=== PATIENT | male | born 1955 | race Caucasian/White ===

== ENCOUNTER 2020-07-28 10:15 | Outpatient (REF) | payer OTHER, SELFPAY ==
[2020-07-28 10:36] LABS: MANUAL DIFF FLAG NO
[2020-07-28 10:53] LABS: Basophils Percent Auto 0.5 % (0-2); Eosinophils Absolute Auto 0.2 X10*3/uL (0.0-0.4); Eosinophils Percent Auto 3.1 % (0-4); Hemoglobin 13.9 g/dl (14.0-18.0); Imm Gran Abs Auto 0.04 X10*3/uL (0.00-0.03); Imm Gran Pct Auto 0.6 % (0.0-0.4); Lymphocytes Absolute Auto 2.1 X10*3/uL (1.2-4.9); Lymphocytes Percent Auto 31.6 % (20-40); Mean Corpuscular HGB Conc 32.3 g/dl (31.0-36.0); Mean Corpuscular Hemoglobin 28.4 pg (27.0-33.0); Mean Corpuscular Volume 87.9 fL (80-98); Monocytes Absolute Auto 0.9 X10*3/uL (0.1-1.2); Monocytes Percent Auto 13.3 % (2-11); Neutrophils Absolute Auto 3.3 X10*3/uL (2.0-8.3); Neutrophils Percent Auto 50.9 % (45-73); Platelet Count 206 X10*3/uL (160-400); Red Blood Count 4.89 X10*6/uL (4.60-5.80); Red Cell Distribution Width 13.1 % (11.0-16.0); White Blood Count 6.6 X10*3/uL (4.8-10.8)
[2020-07-28 11:04] LABS: Glucose Urine UA NEG (NEG); Leukocyte Esterase Urine NEG (NEG); Nitrite Urine NEG (NEG); PH 6.5 (5.0-8.0); Specific Gravity - Urine 1.015 (1.005-1.025); Urine Blood NEG (NEG); Urine Ketones NEG (NEG); Urine Protein NEG (NEG-TRACE)
[2020-07-28 11:06] LABS: Estimated Average Glucose 108 mg/dL; Hemoglobin A1c % 5.4 %
[2020-07-28 11:09] LABS: Appearance Urine CLEAR; Color Urine YELLOW
[2020-07-28 11:19] LABS: Alanine Aminotransferase 21 U/L (0-40); Albumin Level 4.1 g/dL (3.5-5.0); Alkaline Phosphatase 48 U/L (39-117); Anion Gap 10 (12-20); Aspartate Amino Transferase 24 U/L (5-37); Bilirubin Total 0.6 mg/dL (0.0-1.0); Blood Urea Nitrogen 24 mg/dL (9-16); Calcium 8.5 mg/dL (8.4-10.2); Carbon Dioxide 27 mmol/L (22-29); Chloride 108 mmol/L (96-108); Cholesterol 152 mg/dL; Estimated Glomerular Filt Rate > 60; Glucose Fasting 109 mg/dL (60-99); HDL Cholesterol 46 mg/dL; LDL Cholesterol Calculated 98 mg/dl; Potassium 4.4 mmol/L (3.3-5.1); Sodium 141 mmol/L (135-145); Total Protein 6.4 g/dL (6.5-8.0); Triglycerides 41 mg/dL
[2020-07-28 11:46] LABS: Microalbumin Urine < 5.0 mg/L
== END 2020-07-28 10:16 | disposition home or self-care (01) ==
LOC: HO.LNP 10:15
PROVIDERS: Visit Provider Internal Medicine
DX: Z00.00 Encounter for general adult medical examination without abnormal findings (principal); Z12.5 Encounter for screening for malignant neoplasm of prostate; I10 Essential (primary) hypertension; R73.03 Prediabetes
CPT/HCPCS: 80053; 80061; 81003; 82043; 83036; 84153; 85025

== ENCOUNTER → 2020-08-24 13:40 | Outpatient (REF) | payer OTHER, SELFPAY ==
--- NOTE | 2020-08-24 14:00 | CA_ITS ---
Transthoracic Echocardiogram Patient (Last, First, Middle): Clay Mcallister M Gender: Male Date of : 1955 Age: 64 Procedure Date: 08/24/2020 Procedure Type: Transthoracic Echocardiogram Location: OP Height: 175.26 cm Weight: 79.38 kg BSA: 1.95 m2 Heart Rate: bpm BP: 120 / 77 mmHg Communication Consultant: LASHAE Referring MD: Jem Moctezuma MD Symptoms: R01.1 HEART MURMUR Study Quality: Good ECG Rhythm: Sinus Conclusions: - The left ventricular systolic function is normal. The visually estimated ejection fraction is between 60-65%. - The mitral valve appears myxomatous. There is mild posterior mitral leaflet prolapse. There is mild to moderate mitral valve regurgitation. The mitral regurgitation jet is directed anteriorly. Findings Left Ventricle Normal left ventricular cavity size. There is mildly increased left ventricular wall thickness. The left ventricular systolic function is normal. The visually estimated ejection fraction is between 60-65%. There is no evidence of regional wall motion abnormalities. Evidence suggests grade I (mild) diastolic dysfunction. Right Ventricle Normal right ventricular cavity size and systolic function. Atria The left atrium is normal in size. The right atrium is normal in size. Aortic Valve There is a normal trileaflet aortic valve. There is no aortic valve stenosis. There is no aortic valve regurgitation. Mitral Valve The mitral valve appears myxomatous. There is mild posterior mitral leaflet prolapse. There is mild to moderate mitral valve regurgitation. The mitral regurgitation jet is directed anteriorly. There is no mitral valve stenosis. Pulmonic Valve The pulmonic valve was not well visualized. Tricuspid Valve Normal tricuspid valve structure. There is trace tricuspid valve regurgitation. The pulmonary artery systolic pressure is normal. Great Vessels The aortic annulus, sinuses of valsalva, asc aorta, and aortic arch are normal in size. Venous The inferior vena cava is normal in size and collapses greater than 50% with inspiration. Pericardium/Pleural There is no evidence of pericardial effusion. Prior Study Comparison No prior study available for comparison. Measurements 2D Linear Measurements IVSd: 1.14 0.6-0.9/0.6-1.0 cm LVIDd: 4.26 3.9-5.3/4.2-5.9 cm LVIDd Index: 2.18 2.4-3.2/2.2-3.1 cm/m2 LVIDs: 2.74 2.0-3.6 cm LVPWd: 1.11 0.7-1.1 cm Ao Root: 3.80 2.1-3.5 cm LA Diam: 3.90 2.7-3.8/3.0-4.0 cm LAIDs Index: 2.00 1.5-2.3 cm/m2 LV Mass: 206.53 67-162/88-224 g LV Mass Index: 105.91 43-95/49-115 g/m2 LVOT Diam: 2.00 3.0+(-)1.3 cm 2D Systolic Function EF 4C: 70.80 >55% EF 2C: 67.90 >55% EF BiP: 69.40 >55% Mitral Valve MV Pk E: 1.05 MV PK A: 0.79 MV Decel Time: 233.00 E/A: 1.30 E'Lateral: 7.40 E'Medial: 8.05 E/E' Med: 13.00 E/E' Lat: 14.20 PHT: 68.00 MVA PHT: 3.24 Decel [place]: 4.52 Aortic Valve AoV Pk Oli: 1.35 AoV Mn Oli: 0.78 AoV VTI: 0.24 AoV Pk Grad: 7.00 Aov Mn Grad: 3.00 NAZIA Cont.VTI: 2.80 LVOT LVOT Pk Oli: 1.11 LVOT Mn Oli: 0.69 LVOT VTI: 0.22 LVOT Pk Grad: 5.00 LVOT Mn Grad: 2.00 LVOT Diam: 2.00 LVOT Area: 3.14 Diastolic Function MV Pk E: 1.05 MV Pk A: 0.79 E/A: 1.30 E'Medial: 8.05 E/E' Med: 13.00 E' Laterial: 7.40 E/E' Lat: 14.20 Tricuspid Valve TR Pk Oli: 1.82 TR Pk Grad: 13.00 RA Press: 3.00 RVSP: 16.00 Great Vessels Aorta Ao Root-2D: 3.80 2.0-3.7 cm Ao Asc: 3.30 2.1-3.4 cm Ao Arch: 2.70 Updated in Other Vendor System with Status of Final Rony Hopkins MD electronically signed on 08/24/2020 5:37:29 PM with status of Final
== END ==
LOC: HO.CARD 13:40
PROVIDERS: PCP Internal Medicine; Visit Provider Internal Medicine
DX: R01.1 Cardiac murmur, unspecified (principal)
CPT/HCPCS: 93306

== ENCOUNTER 2020-11-18 06:18 | Day surgery (SDC) | payer OTHER, SELFPAY ==
[2020-11-11 09:46] VITALS: BMI 26.3
--- NOTE | 2020-11-17 12:42 | HO.ANESPROP2 ---
Documented by User: Hilda Rangel NP 11/17/20 12:44 HPI - Anesthesia Eval Consult details Narrative: 65yo M for Colonoscopy [facility] Past Medical History Medical History Heart murmur Surgical History Surgical History H/O colonoscopy Hx of hand surgery Social History Social History Patient Tobacco Use Status: Former Tobacco user Quit Date: >10 yr ago Tobacco use type: Cigarette Use of substances other than those prescribed or required for medical reasons: No Advance Directives Information Provided: No Meds Allergies Allergy/AdvReac Type Severity Reaction Status Date / Time No Known Allergies Allergy Mild NOT Verified 11/18/20 06:58 APPLICABLE Home Medications Medication Instructions Recorded Confirmed Last Taken Type No Known Home Meds 11/11/20 11/11/20 Unknown History Exam Exam Date and Time: November 17, 2020 1242 Height,Weight and Vital Signs: Height 5 ft 8 in Weight 78.471 kg Pertinent Lab Results Pertinent Lab Results: Laboratory Tests 07/28/20 07/28/20 07:40 07:40 WBC 6.6 Hgb 13.9 L Hct 43.0 Plt Count 206 Sodium 141 Potassium 4.4 Chloride 108 Carbon Dioxide 27 BUN 24 H Creatinine 0.88 Narrative Narrative: ECHO 08/2020 Conclusions: - The left ventricular systolic function is normal.? The visually estimated ejection fraction is between 60-65%. ? - The mitral valve appears myxomatous.? There is mild posterior? mitral leaflet prolapse.? There is mild to moderate mitral valve regurgitation.? The mitral regurgitation jet is directed ? anteriorly.? Assessment and Plan Assessment Anesthesia Assessment: Chart Reviewed Documented by User: Inés Lambert MD 11/18/20 07:35 [facility] Past Medical History Medical History Heart murmur Surgical History Surgical History H/O colonoscopy Hx of hand surgery History of Problems with Anesthesia: No Social History Social History Patient Tobacco Use Status: Former Tobacco user Quit Date: >10 yr ago Tobacco use type: Cigarette Use of substances other than those prescribed or required for medical reasons: No Advance Directives Information Provided: No Meds Allergies Allergy/AdvReac Type Severity Reaction Status Date / Time No Known Allergies Allergy Mild NOT Verified 11/18/20 06:58 APPLICABLE Home Medications Medication Instructions Recorded Confirmed Last Taken Type No Known Home Meds 11/11/20 11/11/20 Unknown History Exam Airway Mallampati Class: II (Edentulous) TM Dist: >3cm Neck ROM: Full Loose/Missing/Broken Teeth: Yes, Upper and Lower Heart: RRR Lungs: CTA Assessment and Plan Assessment Anesthesia Assessment: Anesthesia Plan Discussed Final Anesthetic Review History of Problems with Anesthesia: No NPO: Yes ASA Class: II Final Preanesthetic Review: Meds/Allgs Chart Reviewed, Consent Obtained/Reviewed and Anes Risks/Benef Reviewed Patient Risk: Low Procedure Risk: Low Anesthetic Plan Anesthetic Plan: MAC: Disposition: Standard PACU
[2020-11-18 06:47] VITALS: BP 142/73; PULSE 65; RESP 20; TEMP 36.5; O2SAT 98
[2020-11-18] MEDS: Lactated Ringers 1,000 ML 100 ML IVCONT (06:57)
[2020-11-18 08:25] VITALS: BP 88/47; PULSE 61; RESP 18; TEMP 36.1; O2SAT 98
--- NOTE | 2020-11-18 08:28 | PM.OP ---
Brief Operative Note Date of Service: 11/18/20 Pre-op diagnosis: Screening Post-op diagnosis: other (Rectal polyp) Procedure: Colonoscopy to the cecum and TI with snare polypectomy Surgeon: Clive Barroso Anesthesia: MAC Was an Passenger Relations Representative used for this Procedure?: No Estimated blood loss (mL): 0 Pathology: other (A. Rectal polyp) Condition: stable Disposition: PACU
[2020-11-18 08:40] VITALS: BP 110/67; PULSE 65; RESP 18; TEMP 36.1; O2SAT 99
--- NOTE | 2020-11-18 10:06 | OP_ITS ---
SURGEON: Clive Barroso MD INDICATIONS: The patient presents for evaluation of colorectal cancer screening and family history of colon cancer. Full consent has been obtained from him for this, including risks of bleeding and perforation. PREOPERATIVE DIAGNOSIS: POSTOPERATIVE DIAGNOSIS: PROCEDURE PERFORMED: Colonoscopy to cecum and terminal ileum with snare polypectomy. ESTIMATED BLOOD LOSS: COMPLICATIONS: ANESTHESIA: Monitored anesthesia care. ASSISTANTS: SPECIMENS: PREOPERATIVE DIAGNOSES: Colorectal cancer screening and family history of colon cancer. POSTOPERATIVE DIAGNOSES: Colorectal cancer screening and family history of colon cancer, rectal polyp, sigmoid diverticulosis, and internal hemorrhoids. DESCRIPTION OF PROCEDURE: The patient was placed in the left lateral decubitus position. The digital rectal exam revealed no abnormalities. The Olympus video pediatric colonoscope was entered into the rectum and advanced easily to the cecum. Once in the cecum, I did identify normal-appearing cecal pouch with appendiceal orifice and a normal-appearing ileocecal valve. The terminal ileum was cannulated and appeared normal. The scope was withdrawn back in the colon. The entire cecum and ileocecal valve appeared normal. The scope was slowly withdrawn assessing all mucosal surfaces carefully. Preparation was excellent. There was a mild amount of sigmoid diverticulosis. I did not visualize any sign of colitis nor angiodysplasia. The only polyp I visualized was in the mid rectum seen in the forward viewing position. This was approximately 10 to 12 mm in diameter and was snared and removed. The polypectomy site appeared clean, without any sign of residual polyp nor bleeding. The polyp was recovered by retrieving on the tip of the colonoscope. The scope was advanced back into the rectum. The polypectomy site appeared clean, without any sign of bleeding. The scope was retroflexed visualizing some small internal hemorrhoids, but no other pathology. The rectal mucosa appeared normal. The scope was straightened out and withdrawn from the patient. He tolerated the procedure well and was returned to the recovery area in stable condition. IMPRESSION: 1. Rectal polyp, status post snare polypectomy. 2. Sigmoid diverticulosis. 3. Internal hemorrhoids. PLAN: The results of the pathology will be checked. Given this finding and his family history, I would recommend a followup colonoscopy in 5 years. He was advised not to use any aspirin and NSAIDs for 1 week. MD TC Perez/[employer] / [id number]
== END 2020-11-18 11:05 | disposition home or self-care (01) ==
PROVIDERS: PCP Internal Medicine; Visit Provider Internal Medicine
PROC: 0DJD8ZZ Inspection of Lower Intestinal Tract, Via Natural or Artificial Opening Endoscopic (ICD-10-PCS; CPT 45378; principal; 2020-11-18 07:30)
DX: Z12.11 Encounter for screening for malignant neoplasm of colon (principal); D12.8 Benign neoplasm of rectum; K57.30 Diverticulosis of large intestine without perforation or abscess without bleeding; K64.8 Other hemorrhoids; Z80.0 Family history of malignant neoplasm of digestive organs
CPT/HCPCS: 45385; 88305

== ENCOUNTER 2021-07-29 11:51 | Outpatient (REF) | payer OTHER, SELFPAY ==
[2021-07-29 12:00] LABS: MANUAL DIFF FLAG NO
[2021-07-29 12:14] LABS: Basophils Percent Auto 0.5 % (0-2); Eosinophils Absolute Auto 0.1 X10*3/uL (0.0-0.4); Hematocrit 42.9 % (42.0-52.0); Hemoglobin 13.9 g/dl (14.0-18.0); Imm Gran Abs Auto 0.02 X10*3/uL (0.00-0.03); Imm Gran Pct Auto 0.3 % (0.0-0.4); Lymphocytes Absolute Auto 1.8 X10*3/uL (1.2-4.9); Lymphocytes Percent Auto 29.7 % (20-40); Mean Corpuscular HGB Conc 32.4 g/dl (31.0-36.0); Mean Corpuscular Hemoglobin 28.5 pg (27.0-33.0); Mean Corpuscular Volume 88.1 fL (80.0-98.0); Monocytes Absolute Auto 0.9 X10*3/uL (0.1-1.2); Monocytes Percent Auto 15.7 % (2-11); Neutrophils Absolute Auto 3.1 x10*3/uL (2.0-8.3); Neutrophils Percent Auto 51.8 % (45-73); Platelet Count 205 X10*3/uL (160-400); Red Blood Count 4.87 X10*6/uL (4.60-5.80); Red Cell Distribution Width 13.5 % (11.0-16.0); White Blood Count 5.9 X10*3/uL (4.8-10.8)
[2021-07-29 12:19] LABS: Appearance Urine HAZY; Color Urine YELLOW; Glucose Urine UA NEG (NEG); Leukocyte Esterase Urine NEG (NEG); Nitrite Urine NEG (NEG); Specific Gravity - Urine <= 1.005 (1.005-1.025); Urine Blood NEG (NEG); Urine Ketones NEG (NEG); Urine Protein NEG (NEG-TRACE)
[2021-07-29 12:27] LABS: RBC Urine 0 /HPF (0); Squamous Epithelial Cell Urine 1+ /LPF; WBC Urine 0 /HPF (0-4)
[2021-07-29 12:31] LABS: Alanine Aminotransferase 16 U/L (0-40); Alkaline Phosphatase 49 U/L (39-117); Anion Gap 10 (12-20); Aspartate Amino Transferase 20 U/L (5-37); Bilirubin Total 0.6 mg/dL (0.0-1.0); Blood Urea Nitrogen 18 mg/dL (9-16); Calcium 8.8 mg/dL (8.4-10.2); Carbon Dioxide 27 mmol/L (22-29); Chloride 105 mmol/L (96-108); Estimated Glomerular Filt Rate > 60; Glucose Fasting 102 mg/dL (60-99); Potassium 4.3 mmol/L (3.3-5.1); Sodium 138 mmol/L (135-145); Total Protein 6.3 g/dL (6.5-8.0)
[2021-07-29 12:43] LABS: Estimated Average Glucose 111 mg/dL; Hemoglobin A1c % 5.5 %
[2021-07-29 12:52] LABS: PSA,Total (Free>4and<10) 1.21 ng/mL (0.00-4.00)
[2021-07-29 13:10] LABS: Creatinine Urine 28.99 mg/dL; Microalbumin Urine < 5.0 mg/L
== END 2021-07-29 11:52 | disposition home or self-care (01) ==
LOC: HO.LNP 11:51
PROVIDERS: Visit Provider Internal Medicine
DX: Z00.00 Encounter for general adult medical examination without abnormal findings (principal); Z12.5 Encounter for screening for malignant neoplasm of prostate; I10 Essential (primary) hypertension; R73.03 Prediabetes
CPT/HCPCS: 80053; 81001; 82043; 83036; 84153; 85025

== ENCOUNTER → 2021-09-24 08:19 | Outpatient (REF) | payer OTHER, SELFPAY ==
--- NOTE | 2021-09-24 08:24 | CA_ITS ---
Transthoracic Echocardiogram Patient (Last, First, Middle): Clay Mcallister M Gender: Male Date of : 1955 Age: 65 Procedure Date: 09/24/2021 Procedure Type: Transthoracic Echocardiogram Location: OP Height: 172.72 cm Weight: 77.57 kg BSA: 1.91 m2 Heart Rate: 70 bpm BP: 122 / 64 mmHg Acute Care Certified Nursing Assistant: SB Referring MD: Jem Moctezuma MD Floor Mechanic: Juan Pablo Horan MD Symptoms: I34.0 MODERATE MITRASL REGURGITATION Study Quality: Good ECG Rhythm: Sinus Conclusions: - 1. Normal LV systolic function 2. Mildly dilated left atrium 3. Possibly severe eccentric mitral regurgitation due to posterior mitral valve leaflet prolapse 4. No pericardial effusion Findings Left Ventricle Normal left ventricular size, thickness, and systolic function. The visually estimated ejection fraction is between 60-65%. Right Ventricle Normal right ventricular cavity size and systolic function. Atria The left atrium is mildly dilated. There is no evidence of interatrial shunt. The right atrium is normal in size. Aortic Valve Normal aortic valve structure and function. There is no aortic valve stenosis. There is no aortic valve regurgitation. Mitral Valve The mitral valve appears myxomatous. There is mild anterior and moderate posterior mitral leaflet thickening. There is severe posterior mitral leaflet prolapse. There is moderate to severe mitral valve regurgitation. The mitral regurgitation jet is directed anteriorly. Pulmonary systolic venous flow indicates systolic flow reversal. Mitral regurgitation jet is eccentric and possibly severe, could be underestimated due to choanda effect Pulmonic Valve The pulmonic valve is likely normal. Tricuspid Valve Normal tricuspid valve structure. There is trace tricuspid valve regurgitation. Tricuspid regurgitation envelope is inadequate for calculation of right ventricular systolic pressure. Normal right atrial pressure. Great Vessels All visible segments of the aorta are normal in size. The pulmonary artery was not well visualized. Venous The inferior vena cava is normal in size and collapses greater than 50% with inspiration. Pericardium/Pleural There is no evidence of pericardial effusion. Prior Study Comparison Changes noted compared to prior study dated: 08/24/2020. Mitral regurgitation appears to be severe Measurements 2D Linear Measurements IVSd: 0.94 0.6-0.9/0.6-1.0 cm LVIDd: 5.20 3.9-5.3/4.2-5.9 cm LVIDd Index: 2.72 2.4-3.2/2.2-3.1 cm/m2 LVIDs: 3.24 2.0-3.6 cm LVPWd: 0.72 0.7-1.1 cm LA Diam: 4.40 2.7-3.8/3.0-4.0 cm LAIDs Index: 2.30 1.5-2.3 cm/m2 LV Mass: 188.78 67-162/88-224 g LV Mass Index: 98.84 43-95/49-115 g/m2 LVOT Diam: 2.10 3.0+(-)1.3 cm 2D Systolic Function EF 4C: 65.00 >55% Mitral Valve MV Pk E: 1.82 MV PK A: 0.62 MV Decel Time: 148.00 E/A: 3.00 E'Lateral: 8.16 E'Medial: 8.16 E/E' Med: 22.30 E/E' Lat: 22.30 PHT: 43.00 MVA PHT: 5.12 Decel [place]: 12.26 MR Alias Oli: 0.39 MR RAD: 1.40 Aortic Valve AoV Pk Oli: 1.13 AoV Mn Oli: 0.71 AoV VTI: 0.21 AoV Pk Grad: 5.00 Aov Mn Grad: 2.00 NAZIA Cont.VTI: 2.79 LVOT LVOT Pk Oli: 1.01 LVOT Mn Oli: 0.73 LVOT VTI: 0.17 LVOT Pk Grad: 4.00 LVOT Mn Grad: 2.00 LVOT Diam: 2.10 LVOT Area: 3.46 Diastolic Function MV Pk E: 1.82 MV Pk A: 0.62 E/A: 3.00 E'Medial: 8.16 E/E' Med: 22.30 E' Laterial: 8.16 E/E' Lat: 22.30 Right Ventricle TAPSE (mm): 22.80 TVS' Oli: 14.40 Tricuspid Valve RA Press: 3.00 Great Vessels Aorta Sinus of Valsalva: 3.30 2.0-3.5 cm Ao Asc: 3.60 2.1-3.4 cm Pulmonary Valve PV Pk Oli: 1.20 Peak PV Grad: 6.00 Updated in Other Vendor System with Status of Final Juan Pablo Horan MD electronically signed on 09/25/2021 4:00:36 PM with status of Final
== END ==
LOC: HO.CARD 08:19
PROVIDERS: PCP Internal Medicine; Visit Provider Internal Medicine
DX: I34.0 Nonrheumatic mitral (valve) insufficiency (principal)
CPT/HCPCS: 93306

== ENCOUNTER → 2021-10-21 13:58 | Outpatient (BNVA) | payer OTHER, SELFPAY | PROVIDERS: PCP Internal Medicine; Referring Provider Internal Medicine; Visit Provider Internal Medicine | DX: I34.0 Nonrheumatic mitral (valve) insufficiency (principal) | CPT/HCPCS: 93005 ==

== ENCOUNTER 2021-10-26 14:06 | Emergency (ER) | payer OTHER, SELFPAY ==
--- NOTE | ~2021-10-26 | XR_ITS ---
EXAMINATION: XR TIBIA AND FIBULA, RIGHT CLINICAL INFORMATION: Crush injury right lower leg COMPARISON: None TECHNIQUE: AP and lateral views of the right tibia and fibula were obtained. FINDINGS: The bones and soft tissues are normal. No fracture. No osseous lesions. XR/XR tibia fibula RT 2V IMPRESSION: Normal right tibia and fibula.
[2021-10-26 14:16] VITALS: BP 156/68; PULSE 102; O2SAT 96
[2021-10-26 14:35] VITALS: BP 143/77; PULSE 69; RESP 18; TEMP 36.5; O2SAT 97; BMI 25.2
--- NOTE | 2021-10-26 17:19 | ED_ITS ---
HPI - Extremity Injury (Lower) General Chief Complaint: Extremity Injury, Lower Stated Complaint: leg injury Time Seen by Provider: 10/26/21 17:19 Source: patient Mode of arrival: ambulatory Limitations: no limitations History of Present Illness HPI Narrative: 65 yo male presents to the ER for evaluation of right lower leg injury sustained at work today. He works for the [employer] and was working on a baseball field with a [place] today. He reports getting his right lower leg pain between a [place] and a tractor for a few minutes while he was at work today. He states his leg was pinned between the 2 machines, the right axilla was not moving. He was unable to move. A co-worker on another baseball them and was able to come and releases leg. He was afraid to bear weight on it and came to the emergency room for further evaluation. He reports there was abrasions to the right lateral lower portion of his leg. Denies any weakness, numbness, tingling. MD complaint: leg injury Onset (ago): hour(s) Type of Injury: blunt Place: street/outdoors Severity: mild Severity scale (1-10): 4 Relieving factors: immobilization and rest Exacerbating factors: weight bearing and palpation Context: fall Associated symptoms: ambulatory Other symptoms: none Related Data Home Medications Medication Instructions Recorded Confirmed No Known Home Meds 11/11/20 10/21/21 Allergies Allergy/AdvReac Type Severity Reaction Status Date / Time No Known Allergies Allergy Mild NOT Verified 10/21/21 14:21 APPLICABLE Review of Systems Review of Systems: Constitutional: No Fever, No Chills ENT/Mouth: No sore throat, No Rhinorrhea Cardiovascular: No Chest Pain, No SOB Respiratory: No Cough, No Sputum Gastrointestinal: No Nausea, No Vomiting, No abdominal Pain Musculoskeletal: No joint pain, + Myalgias Skin: + Skin Lesions, No rash Neuro: No Weakness, No Numbness, No Dizziness, No Headache Psych: No Anxiety/Panic Heme/Lymph:+Bruising, No Lymphadenopathy PMFSH Past Medical History Medical History Heart murmur Surgical History H/O colonoscopy Hx of hand surgery Family History Family History Father No problems noted. Mother No problems noted. Social History Social History Patient Tobacco Use Status: Former Tobacco user Quit Date: >10 yr ago Tobacco use type: Cigarette Advance Directives: No Advance Directives Information Provided: No Physical Exam Vital Signs: Vital Signs: Last Vital Signs Temp 97.7 F 10/26/21 14:35 Pulse 69 10/26/21 14:35 Resp 18 10/26/21 14:35 BP 143/77 H 10/26/21 14:35 Pulse Ox 97 10/26/21 14:35 O2 Del Method 10/26/21 14:35 BMI result Body Mass Index 25.2 Appearance: Alert. Oriented X3. No acute distress. HEENT: normal inspection CVS: Normal heart rate and rhythm. Pulses normal. Respiratory: No respiratory distress. Skin: Skin warm and dry. Normal skin color. Normal skin turgor. No rashes. Extremities: No major swelling or gross deformity of the lower extremities. Right lower leg with a 4 in circular area of superficial abrasion to the lateral aspect of the leg. No active bleeding. All compartments are soft and compressible. Neurovascularly intact distally. Neuro: Oriented X 3. No motor deficit. No sensory deficit. Ambulates with a steady gait Course Course Course Narrative: T5 year old male presents to the ER for evaluation of right lower leg injury, headache pinned between eroded [place]ar and a tractor machine. On examination there is superficial abrasion to the lateral aspect of the right lower leg, all compartments are soft and compressible. Possibly a evolving hematoma palpable underneath the abrasion. The area was placed in a compressive Kurt wrap for support compression. X-rays negative. He is ambulating normally. He was counseled on R.I.C.E therapy and warning symptoms to bring him back to the emergency room. Critical Care Time Critical Care Time Critical Care Time: No Discharge Plan Discharge Clinical Impression: Contusion of lower leg, right Patient Disposition: Home, Self-Care Instructions: Contusion in Adults (ED) Additional Instructions: Your x-ray today was normal. Recommend rest, ice, elevation. Wear the KURT wrap as needed for compression and support. If you develop new or worsening symptoms call 911 or come back to the ER for further evaluation. Prescriptions: No Action No Known Home Meds Referrals: Jem Moctezuma MD [Primary Care Provider] - Stand Alone Forms: Work/School Release Interventions: ED Discharge Assessment Last Done: 10/26/21 17:46 Discharge Date/Time: 10/26/21 17:46
== END 2021-10-26 17:46 | disposition home or self-care (01) ==
PROVIDERS: Emergency Provider Internal Medicine; PCP Internal Medicine
DX: S80.11XA Contusion of right lower leg, initial encounter (principal); Y29.XXXA Contact with blunt object, undetermined intent, initial encounter; Y93.9 Activity, unspecified; Y92.9 Unspecified place or not applicable; Y99.0 Civilian activity done for income or pay; Z87.891 Personal history of nicotine dependence
CPT/HCPCS: 73590; 99282; 99283

== ENCOUNTER → 2021-11-18 14:26 | Outpatient (BNVA) | payer SELFPAY | PROVIDERS: PCP Internal Medicine; Visit Provider Internal Medicine | DX: Z02.79 Encounter for issue of other medical certificate (principal) ==

== ENCOUNTER → 2022-05-03 07:15 | Outpatient (REF) | payer OTHER, SELFPAY ==
--- NOTE | 2022-05-03 07:18 | CA_ITS ---
Transthoracic Echocardiogram Patient (Last, First, Middle): Clay Mcallister M Gender: Male Date of : 1955 Age: 66 Procedure Date: 05/03/2022 Procedure Type: Transthoracic Echocardiogram Location: OP Height: 175.26 cm Weight: 77.57 kg BSA: 1.93 m2 Heart Rate: bpm BP: 124 / 68 mmHg Beef Grader: Referring MD: Rony Hopkins MD Symptoms: I34.0 - Nonrheumatic mitral (valve) insufficiency Study Quality: Fair ECG Rhythm: Sinus Conclusions: - The left ventricular systolic function is normal. The calculated ejection fraction is 62% by biplane method. - Moderate to severe vs probably severe mitral regurgitation. Findings Left Ventricle Normal left ventricular cavity size. There is normal left ventricular wall thickness. The left ventricular systolic function is normal. The calculated ejection fraction is 62% by biplane method. There is no evidence of regional wall motion abnormalities. Diastolic function is normal for age. Right Ventricle Normal right ventricular cavity size and systolic function. Atria The left atrium is moderately dilated. The right atrium is normal in size. Aortic Valve There is a normal trileaflet aortic valve. There is no aortic valve stenosis. There is no aortic valve regurgitation. Mitral Valve There is moderate posterior mitral leaflet prolapse. There is no mitral valve stenosis. Moderate to severe vs probably severe mitral regurgitation. Eccentric jet, along the anterior mitral leaflet. Evidence of flow reversal in pulmonary veins. Underestimation possible. Pulmonic Valve The pulmonic valve is likely normal. Tricuspid Valve Normal tricuspid valve structure. There is trace tricuspid valve regurgitation. There is no evidence of pulmonary hypertension. Great Vessels The asc aorta is normal in size. Venous The inferior vena cava is normal in size and collapses greater than 50% with inspiration. Pericardium/Pleural There is no evidence of pericardial effusion. Prior Study Comparison No significant change compared to prior study dated: 09/24/2021. Measurements 2D Linear Measurements IVSd: 1.01 0.6-0.9/0.6-1.0 cm LVIDd: 4.50 3.9-5.3/4.2-5.9 cm LVIDd Index: 2.33 2.4-3.2/2.2-3.1 cm/m2 LVIDs: 2.24 2.0-3.6 cm LVPWd: 1.08 0.7-1.1 cm Ao Root: 3.30 2.1-3.5 cm LA Diam: 4.50 2.7-3.8/3.0-4.0 cm LAIDs Index: 2.33 1.5-2.3 cm/m2 LV Mass: 202.87 67-162/88-224 g LV Mass Index: 105.11 43-95/49-115 g/m2 LVOT Diam: 2.10 3.0+(-)1.3 cm 2D Systolic Function EF 4C: 58.00 >55% EF 2C: 65.20 >55% EF BiP: 61.60 >55% Mitral Valve MV Pk E: 1.23 MV PK A: 0.76 MV Decel Time: 160.00 E/A: 1.60 E'Lateral: 13.80 E'Medial: 6.31 E/E' Med: 19.50 E/E' Lat: 8.90 PHT: 47.00 MVA PHT: 4.68 Decel [place]: 7.71 MR Vol - PW Dopp: 81.51 MR VTI: 1.43 MR ERO: 57.00 MR Alias Oli: 0.28 MR RAD: 1.20 Aortic Valve AoV Pk Oli: 1.10 AoV Mn Oli: 0.81 AoV VTI: 0.17 AoV Pk Grad: 5.00 Aov Mn Grad: 3.00 NAZIA Cont.VTI: 2.62 LVOT LVOT Pk Oli: 0.81 LVOT Mn Oli: 0.54 LVOT VTI: 0.13 LVOT Pk Grad: 3.00 LVOT Mn Grad: 1.00 LVOT Diam: 2.10 LVOT Area: 3.46 Diastolic Function MV Pk E: 1.23 MV Pk A: 0.76 E/A: 1.60 E'Medial: 6.31 E/E' Med: 19.50 E' Laterial: 13.80 E/E' Lat: 8.90 Right Ventricle TAPSE (mm): 31.00 TVS' Oli: 12.00 Tricuspid Valve TR Pk Oli: 2.24 TR Pk Grad: 20.00 RA Press: 3.00 RVSP: 23.00 Great Vessels Aorta Ao Root-2D: 3.30 2.0-3.7 cm Ao Asc: 3.40 2.1-3.4 cm Pulmonary Valve PV Pk Oli: 1.24 Peak PV Grad: 6.00 Updated in Other Vendor System with Status of Final Rony Hopkins MD electronically signed on 05/03/2022 11:21:14 AM with status of Final
== END ==
LOC: HO.CARD 07:15
PROVIDERS: PCP Internal Medicine; Visit Provider Internal Medicine
DX: I34.0 Nonrheumatic mitral (valve) insufficiency (principal)
CPT/HCPCS: 93306

== ENCOUNTER → 2022-05-05 14:38 | Outpatient (BNVA) | payer OTHER, SELFPAY | PROVIDERS: PCP Internal Medicine; Referring Provider Internal Medicine; Visit Provider Internal Medicine | DX: Z13.89 Encounter for screening for other disorder (principal) ==

== ENCOUNTER 2022-07-28 10:38 | Outpatient (REF) | payer OTHER, SELFPAY ==
[2022-07-28 10:42] LABS: MANUAL DIFF FLAG NO
[2022-07-28 11:10] LABS: Basophils Percent Auto 0.3 % (0-2); Eosinophils Absolute Auto 0.1 X10*3/uL (0.0-0.4); Eosinophils Percent Auto 1.8 % (0-4); Hemoglobin 15.5 g/dl (14.0-18.0); Imm Gran Abs Auto 0.03 X10*3/uL (0.00-0.03); Imm Gran Pct Auto 0.4 % (0.0-0.4); Lymphocytes Absolute Auto 2.1 X10*3/uL (1.2-4.9); Lymphocytes Percent Auto 29.4 % (20-40); Mean Corpuscular HGB Conc 32.3 g/dl (31.0-36.0); Mean Corpuscular Hemoglobin 28.8 pg (27.0-33.0); Mean Corpuscular Volume 89.1 fL (80.0-98.0); Mean Platelet Volume 8.7 fL (9.4-12.4); Monocytes Percent Auto 13.7 % (2-11); Neutrophils Absolute Auto 3.9 x10*3/uL (2.0-8.3); Neutrophils Percent Auto 54.4 % (45-73); Platelet Count 223 X10*3/uL (160-400); Red Blood Count 5.39 X10*6/uL (4.60-5.80); Red Cell Distribution Width 13.7 % (11.0-16.0); White Blood Count 7.2 X10*3/uL (4.8-10.8)
[2022-07-28 11:21] LABS: Appearance Urine Clear; Color Urine Yellow; Glucose Urine UA Negative (Negative); Leukocyte Esterase Urine Negative (Negative); Nitrite Urine Negative (Negative); PH 6.5 (5.0-9.0); Urine Blood Negative (Negative); Urine Ketones Negative (Negative); Urine Protein Negative (Neg-Trace)
[2022-07-28 11:23] LABS: Estimated Average Glucose 103 mg/dL; Hemoglobin A1c % 5.2 %
[2022-07-28 11:27] LABS: Alanine Aminotransferase 20 U/L (0-40); Albumin Level 4.5 g/dL (3.5-5.0); Alkaline Phosphatase 55 U/L (39-117); Anion Gap 14 (12-20); Aspartate Amino Transferase 22 U/L (5-37); Blood Urea Nitrogen 17 mg/dL (9-16); Calcium 9.5 mg/dL (8.4-10.2); Carbon Dioxide 29 mmol/L (22-29); Chloride 105 mmol/L (96-108); Cholesterol 206 mg/dL; Estimated Glomerular Filt Rate > 60; Glucose Fasting 115 mg/dL (60-99); HDL Cholesterol 72 mg/dL; LDL Cholesterol Calculated 126 mg/dl; Potassium 4.8 mmol/L (3.3-5.1); Sodium 143 mmol/L (135-145); Triglycerides 44 mg/dL
[2022-07-28 11:28] LABS: Bacteria Urine None Seen (None Seen); Hyaline Casts Urine 0-2 /LPF (0-2); RBC Urine 0-2 /HPF (0-2); Squamous Epithelial Cell Urine 0-2 /HPF (0-2); WBC Urine 0-5 /HPF (0-5)
[2022-07-28 11:43] LABS: PSA,Total (Free>4and<10) 1.65 ng/mL (0.00-4.00)
[2022-07-28 12:14] LABS: Creatinine Urine 40.95 mg/dL; Microalbumin Urine < 5.0 mg/L
== END 2022-07-28 10:39 | disposition home or self-care (01) ==
LOC: HO.LNP 10:38
PROVIDERS: PCP Internal Medicine; Visit Provider Internal Medicine
DX: Z12.5 Encounter for screening for malignant neoplasm of prostate (principal); I10 Essential (primary) hypertension; R73.03 Prediabetes
CPT/HCPCS: 80053; 80061; 81001; 82043; 83036; 84153; 85025

== ENCOUNTER 2022-09-08 18:22 | Emergency (ER) | payer OTHER, SELFPAY ==
[2022-09-08 18:48] VITALS: BP 145/101; PULSE 100; RESP 20; TEMP 37.1; O2SAT 96; BMI 26.4
--- NOTE | 2022-09-08 18:48 | ED.GENADULT ---
HPI - General Adult General Chief complaint: ETOH/Substance Use Stated complaint: alcohol detox Time Seen by Provider: 09/08/22 19:12 Source: patient and family (Brother) Mode of arrival: ambulatory History of Present Illness HPI narrative: 66-year-old male without significant past medical history other than having been sober from alcohol for approximately 17 years than relapsed over the past month and states that he consumes almost a qt of rum a day in states that is last drink was last night. Patient denies any SI/HI/depression and denies any history of seizures from obtaining from alcohol. Related Data Home Medications Medication Instructions Recorded Confirmed clobetasol 0.05 % topical foam g topical BID 05/05/22 05/05/22 Allergies Allergy/AdvReac Type Severity Reaction Status Date / Time No Known Allergies Allergy Mild NOT Verified 09/08/22 18:53 APPLICABLE Review of Systems Review of Systems: Pertinent positives and negatives as stated in HPI [facility] Past Medical History Source: nursing notes reviewed Medical History Heart murmur Surgical History H/O colonoscopy Hx of hand surgery Family History Family History Father No problems noted. Mother No problems noted. Social History Social History Alcohol intake: current Alcohol intake frequency: 3 or more drinks per day Alcohol type: hard liquor Patient Tobacco Use Status: Former Tobacco user Quit Date: 1999 Smoked in Last 30 Days: No Use of substances other than those prescribed or required for medical reasons: No Advance Directives: No Advance Directives Information Provided: Yes Physical Exam ED Vital Signs: Vital Signs - 24 hr 09/08/22 18:48 09/08/22 21:08 09/09/22 01:05 Temperature 98.7 F Pulse Rate 100 88 Respiratory Rate 20 17 Blood Pressure 145/101 H 132/81 Pulse Oximetry 96 94 Oxygen Delivery Method Room Air Room Air 09/09/22 03:30 09/09/22 06:10 09/09/22 07:59 Temperature 98.1 F 98.7 F 97.7 F Pulse Rate 90 78 85 Respiratory Rate 16 17 18 Blood Pressure 142/95 H 144/87 H 158/93 H Pulse Oximetry 94 93 94 Oxygen Delivery Method Room Air Room Air Room Air 09/09/22 09:24 09/09/22 10:49 09/09/22 12:25 Temperature 97.7 F Pulse Rate 83 83 80 Respiratory Rate 16 16 Blood Pressure 144/83 H 144/83 H 155/80 H Pulse Oximetry 97 97 94 Oxygen Delivery Method Room Air Room Air BMI result Body Mass Index 26.4 VITAL SIGNS: Reviewed. GENERAL: Well developed, well nourished, in no acute distress. HEAD: Normocephalic/atraumatic EYES: PERRLA, EOMI EARS: Ext canals without abnormality NOSE: Nares patent bilateral OROPHARYNX: no oral lesions noted, posterior pharynx clear NECK: Supple, no adenopathy LUNGS: Normal breath sounds. No adventitious sounds or accessory muscle use. SpO2<94> CARDIOVASCULAR: Regular rate and rhythm without noted murmurs, no JVD or lower extremity edema. ABDOMEN: Soft, non-tender, non-distended with bowel sounds. MUSCULOSKELETAL: No tenderness, deformities, or effusions noted on gross inspection. EXTREMITIES: No cyanosis, clubbing or edema. SKIN: Inspection of the skin reveals no rashes NEUROLOGIC: Alert and oriented x 4. Strength and sensation to light touch were grossly intact x 4. Course Course Course Narrative: This is an RME: Additional HPI, ROS, PE not included below will be deferred to primary provider. 66 year old male hx of alcohol abuse who was sober for 17 years who recently started drinking a month ago presents requesting detox. Patients last drink last night. Patient states he drinks a half a gallon of rum in 17 days, however poor historian. No SI or HI. Patient feels sweaty, anxious, with mild headache. Pe- hypertension and tachycardia CIWA- Plan- lorazepam Reevaluation(s) Reevaluation #1: physician observation continued today. no acute overnight events. patient has been seen by addiction medicine and referrals have been made to [facility] where he has been accepted. seen by PT who is recommending walking with a walker which his brother brought in for him to take. [facility] is going to come pick him up. stable for discharge to detox. physician observation discontinued at this time. Time: 13:09 Medications Administered Discontinued Medications Generic Name Dose Route Start Last Admin Trade Name Freq PRN Reason Stop Dose Admin Sodium Chloride 1,000 mls @ 999 mls/hr 09/08/22 21:15 09/08/22 22:43 Ns IV 09/08/22 22:15 Infused .Q1H1M [place] Infusion Lorazepam 2 mg 09/08/22 18:50 09/08/22 19:09 Lorazepam 1 Mg Tablet PO 09/08/22 18:51 2 mg ONCE ONE Administration Lorazepam 1 mg 09/09/22 10:06 09/09/22 10:13 Lorazepam 1 Mg Tablet PO 09/09/22 10:07 1 mg ONCE ONE Administration Medical Decision Making Medical Decision Making [facility] Narrative: 66-year-old male arrives with request for inpatient detox, his brother is also at bedside and feels that he would benefit from admission and has called several detox centers to include [place]. Basic medical clearance will be established with labs, toxicology and placed on a CIWA. I reviewed all investigations and patient's hematologic results eye reflection of ongoing alcohol use disorder. Chemistries demonstrate bicarb of 20 likely indicative of a combination of poor nutrition/dehydration. Transaminase elevation consistent with alcohol consumption. I do note that the lipase is mildly elevated although patient denies any complaints of epigastric pain but will give him 1 L of IV fluids. He is otherwise medically cleared for further evaluation by the care team for inpatient alcohol detox. Patient placed in physician observation because the patient needed more time for assessment by the care team for inpatient placement for alcohol detox. At the time observation was started the patient's vital signs were stable, patient is alert and oriented, neuro: Nonfocal, CV RRR, lungs clear Differential Diagnosis Please see the discussion above Consult Healthcare Provider Management of the patient was discussed with: Veneer Stapler Please see the discussion above Lab Data Please see the discussion above 09/08/22 18:58 09/08/22 18:58 Labs: Lab Results 09/08/22 09/08/22 09/08/22 Range/Units 18:58 18:58 20:45 WBC 4.0 L (4.8-10.8) X10*3/uL RBC 4.76 (4.60-5.80) X10*6/uL Hgb 14.4 (14.0-18.0) g/dl Hct 42.2 (42.0-52.0) % MCV 88.7 (80.0-98.0) fL MCH 30.3 (27.0-33.0) pg MCHC 34.1 (31.0-36.0) g/dl RDW 15.6 (11.0-16.0) % Plt Count 70 L D (160-400) X10*3/uL MPV 9.0 L (9.4-12.4) fL Immature Gran % (Auto) 0.9 H (0.0-0.4) % Neut % (Auto) 56.2 (45-73) % Lymph % (Auto) 25.0 (20-40) % [place] % (Auto) 16.3 H (2-11) % Eos % (Auto) 0.9 (0-4) % Baso % (Auto) 0.7 (0-2) % Lymph # (Auto) 1.1 L (1.2-4.9) X10*3/uL [place] # (Auto) 0.7 (0.1-1.2) X10*3/uL Eos # (Auto) 0.0 (0.0-0.4) X10*3/uL Baso # (Auto) 0.0 (0.0-0.2) X10*3/uL Abs Immat Gran (auto) 0.04 H (0.00-0.03) X10*3/uL Absolute Neuts (auto) 2.4 (2.0-8.3) x10*3/uL Absolute Nucleated RBC 0.000 (0.0-0.012) X10*3/uL Nucleated RBC % (auto) 0.0 (0.0-0.2) /100WBC Smear Tech's Comments VERIFIED Sodium 140 (135-145) mmol/L Potassium 4.4 (3.3-5.1) mmol/L Chloride 105 (96-108) mmol/L Carbon Dioxide 20 L (22-29) mmol/L Anion Gap 19 (12-20) BUN 8 L (9-16) mg/dL Creatinine 0.71 (0.5-1.4) mg/dL Estim Creat Clear Calc 100.9 Estimated GFR > 60 Random Glucose 113 (60-115) mg/dL Calcium 8.5 D (8.4-10.2) mg/dL Magnesium 2.1 (1.6-2.6) mg/dL Total Bilirubin 0.7 (0.0-1.0) mg/dL AST 89 H (5-37) U/L ALT 52 H (0-40) U/L Alkaline Phosphatase 46 (39-117) U/L Total Protein 6.9 (6.5-8.0) g/dL Albumin 4.0 (3.5-5.0) g/dL Lipase 213 H (8-78) U/L Urine Color Yellow Urine Appearance Clear Urine pH 6.0 (5.0-9.0) Ur Specific Mathews <= 1.005 (1.005-1.025) Urine Protein Negative (Neg-Trace) mg/dL Urine Glucose (UA) Negative (Negative) mg/dL Urine Ketones Negative (Negative) mg/dL Urine Blood Negative (Negative) Urine Nitrite Negative (Negative) Ur Leukocyte Esterase Negative (Negative) Urine Opiates Screen (Not Detect) Urine Fentanyl Screen (Not Detect) Ur Barbiturates Screen (Not Detect) Ur Phencyclidine Scrn (Not Detect) Ur Amphetamines Screen (Not Detect) U Benzodiazepines Scrn (Not Detect) Urine Cocaine Screen (Not Detect) U Marijuana (THC) Screen (Not Detect) Ethyl Alcohol 357 H* mg/dL 09/08/22 Range/Units 20:45 WBC (4.8-10.8) X10*3/uL RBC (4.60-5.80) X10*6/uL Hgb (14.0-18.0) g/dl Hct (42.0-52.0) % MCV (80.0-98.0) fL MCH (27.0-33.0) pg MCHC (31.0-36.0) g/dl RDW (11.0-16.0) % Plt Count (160-400) X10*3/uL MPV (9.4-12.4) fL Immature Gran % (Auto) (0.0-0.4) % Neut % (Auto) (45-73) % Lymph % (Auto) (20-40) % [place] % (Auto) (2-11) % Eos % (Auto) (0-4) % Baso % (Auto) (0-2) % Lymph # (Auto) (1.2-4.9) X10*3/uL [place] # (Auto) (0.1-1.2) X10*3/uL Eos # (Auto) (0.0-0.4) X10*3/uL Baso # (Auto) (0.0-0.2) X10*3/uL Abs Immat Gran (auto) (0.00-0.03) X10*3/uL Absolute Neuts (auto) (2.0-8.3) x10*3/uL Absolute Nucleated RBC (0.0-0.012) X10*3/uL Nucleated RBC % (auto) (0.0-0.2) /100WBC Smear Tech's Comments Sodium (135-145) mmol/L Potassium (3.3-5.1) mmol/L Chloride (96-108) mmol/L Carbon Dioxide (22-29) mmol/L Anion Gap (12-20) BUN (9-16) mg/dL Creatinine (0.5-1.4) mg/dL Estim Creat Clear Calc Estimated GFR Random Glucose (60-115) mg/dL Calcium (8.4-10.2) mg/dL Magnesium (1.6-2.6) mg/dL Total Bilirubin (0.0-1.0) mg/dL AST (5-37) U/L ALT (0-40) U/L Alkaline Phosphatase (39-117) U/L Total Protein (6.5-8.0) g/dL Albumin (3.5-5.0) g/dL Lipase (8-78) U/L Urine Color Urine Appearance Urine pH (5.0-9.0) Ur Specific Mathews (1.005-1.025) Urine Protein (Neg-Trace) mg/dL Urine Glucose (UA) (Negative) mg/dL Urine Ketones (Negative) mg/dL Urine Blood (Negative) Urine Nitrite (Negative) Ur Leukocyte Esterase (Negative) Urine Opiates Screen Not Detected (Not Detect) Urine Fentanyl Screen Not Detected (Not Detect) Ur Barbiturates Screen Not Detected (Not Detect) Ur Phencyclidine Scrn Not Detected (Not Detect) Ur Amphetamines Screen Not Detected (Not Detect) U Benzodiazepines Scrn Not Detected (Not Detect) Urine Cocaine Screen Not Detected (Not Detect) U Marijuana (THC) Screen Not Detected (Not Detect) Ethyl Alcohol mg/dL External Record Review External record reviewed: Prior outpatient labs Discharge Plan Discharge Clinical Impression: Alcohol intoxication, Alcohol use disorder Patient Disposition: Xfer Inpatient Rehab Fac Transfer Details: [facility] Instructions: Alcohol Use Disorder (ED) Additional Instructions: Present directly to [facility] for detox If you develop new or worsening symptoms call 911 or come back to the ER for further evaluation. Prescriptions: No Action clobetasol 0.05 % foam topical BID
[2022-09-08 19:05] LABS: Basophils Percent Auto 0.7 % (0-2); Eosinophils Percent Auto 0.9 % (0-4); Hematocrit 42.2 % (42.0-52.0); Hemoglobin 14.4 g/dl (14.0-18.0); Imm Gran Abs Auto 0.04 X10*3/uL (0.00-0.03); Imm Gran Pct Auto 0.9 % (0.0-0.4); Lymphocytes Absolute Auto 1.1 X10*3/uL (1.2-4.9); MANUAL DIFF FLAG SCAN; Mean Corpuscular HGB Conc 34.1 g/dl (31.0-36.0); Mean Corpuscular Hemoglobin 30.3 pg (27.0-33.0); Mean Corpuscular Volume 88.7 fL (80.0-98.0); Monocytes Absolute Auto 0.7 X10*3/uL (0.1-1.2); Monocytes Percent Auto 16.3 % (2-11); Neutrophils Absolute Auto 2.4 x10*3/uL (2.0-8.3); Neutrophils Percent Auto 56.2 % (45-73); PLT CLUMP 1; Red Blood Count 4.76 X10*6/uL (4.60-5.80); Red Cell Distribution Width 15.6 % (11.0-16.0); SCAN SMEAR FLAG 1
[2022-09-08] MEDS: LORazepam 1 MG TABLET 2 MG PO (19:09)
[2022-09-08 19:19] LABS: Alanine Aminotransferase 52 U/L (0-40); Alkaline Phosphatase 46 U/L (39-117); Anion Gap 19 (12-20); Aspartate Amino Transferase 89 U/L (5-37); Bilirubin Total 0.7 mg/dL (0.0-1.0); Blood Urea Nitrogen 8 mg/dL (9-16); Calcium 8.5 mg/dL (8.4-10.2); Carbon Dioxide 20 mmol/L (22-29); Chloride 105 mmol/L (96-108); Creatinine Clr Calc Pharmacy 100.9; Estimated Glomerular Filt Rate > 60; Ethanol 357 mg/dL; Glucose Random 113 mg/dL (60-115); Magnesium 2.1 mg/dL (1.6-2.6); Potassium 4.4 mmol/L (3.3-5.1); Sodium 140 mmol/L (135-145); Total Protein 6.9 g/dL (6.5-8.0)
[2022-09-08 19:29] LABS: Platelet Count 70 X10*3/uL (160-400); SLIDE REVIEW VERIFIED
[2022-09-08 19:47] LABS: Lipase 213 U/L (8-78)
[2022-09-08 21:08] VITALS: BP 132/81; PULSE 88; O2SAT 94
[2022-09-08] MEDS: 0.9 % Sodium Chloride 1,000 ML 999 ML IV (21:16)
[2022-09-08 21:35] LABS: Appearance Urine Clear; Color Urine Yellow; Glucose Urine UA Negative (Negative); Leukocyte Esterase Urine Negative (Negative); Nitrite Urine Negative (Negative); Specific Gravity - Urine <= 1.005 (1.005-1.025); Urine Blood Negative (Negative); Urine Ketones Negative (Negative); Urine Protein Negative (Neg-Trace)
[2022-09-08 21:46] LABS: Amphetamine Screen Urine Not Detected (Not Detect); Barbiturates, Urine Not Detected (Not Detect); Benzodiazepines Screen Urine Not Detected (Not Detect); Cannabinoid Screen Urine Not Detected (Not Detect); Cocaine Screen Urine Not Detected (Not Detect); Fentanyl, urine Not Detected (Not Detect); Opiate Screen Urine Not Detected (Not Detect); Phencyclidine Screen Urine Not Detected (Not Detect)
--- NOTE | 2022-09-08 23:10 | PC.NURSE ---
Report received from off-going RN, pt has been calm and cooperative, responsive to verbal stimuli. Presently sleeping, appears comfortable.
[2022-09-09] VITALS (7 sets, daily range): BP systolic 142–158; BP diastolic 80–95; PULSE 78–90; RESP 16–18; TEMP 36.5–37.1; O2SAT 93–97
--- NOTE | 2022-09-09 01:02 | PC.NURSE ---
Pt is sleeping, appears comfortable and changes positions as desired. Will continue to monitor.
--- NOTE | 2022-09-09 01:24 | PC.NURSE ---
Pt has a 20G IV in left wrist, established by previous RN. Flushes well, no signs of infiltration and pt denies pain at site.
--- NOTE | 2022-09-09 01:26 | PC.NURSE ---
Pt easily arousable with verbal stimuli, denies any pain or discomfort and any needs. Pt encouraged to use the call light for needs with verbalized understanding. Will continue to monitor.
--- NOTE | 2022-09-09 03:10 | PC.NURSE ---
Pt is awake and alert, watching TV. Is calm and cooperative and appears comfortable in bed. Changes positions independently. Verbalized no needs at this time. Will continue to monitor.
--- NOTE | 2022-09-09 09:46 | MHC.RECOVRN ---
Met with pt in ED17 after pt expressed interest in [facility] for alcohol use. Pt laying in bed, brother (Sher) present, awake, alert, easily engages in conversation. Pt appears anxious but comfortable. Pt reports alcohol use x 2 weeks after 17 years in recovery. Pt attributes recurrence to life. Pt has been drinking 1/2 gallon booze daily. Pt has never been to [facility], educated on process, length of stay, etc. Pt denies hx withdrawal seizures. Discussed different facilities including [facility] and [facility]. Pt interested in referral to [facility]. Pt denies other questions or concerns at this time. Referral sent, awaiting review.
--- NOTE | 2022-09-09 10:03 | PC.NURSE ---
attempted to ambulate pt. states he feels very unsteady on his feet. feels like he is walking only on his heels. this is new- pt states he is normally able to ambulate independently. pa aware. plan for pt consult.
[2022-09-09] MEDS: LORazepam 1 MG TABLET PO (10:13)
--- NOTE | 2022-09-09 13:17 | MHC.RECOVSUP ---
Pt has been accepted to [facility] and the facility is sending a ride to pick up operator pt at 2pm. Provider aware.
== END 2022-09-09 14:49 ==
PROVIDERS: Physician Assistant; Emergency Provider Student in an Organized Health Care Education/Training Program; PCP Internal Medicine
DX: F10.129 Alcohol abuse with intoxication, unspecified (principal); R26.2 Difficulty in walking, not elsewhere classified; Y90.8 Blood alcohol level of 240 mg/100 ml or more; Z79.899 Other long term (current) drug therapy
CPT/HCPCS: 36415; 80053; 80307; 81003; 83690; 83735; 85025; 96360; 97161; 99285

== ENCOUNTER 2022-09-20 12:27 | Outpatient (REF) | payer OTHER, SELFPAY ==
[2022-09-20 12:29] LABS: MANUAL DIFF FLAG NO
[2022-09-20 12:38] LABS: Basophils Absolute Auto 0.1 X10*3/uL (0.0-0.2); Basophils Percent Auto 1.2 % (0-2); Eosinophils Absolute Auto 0.1 X10*3/uL (0.0-0.4); Eosinophils Percent Auto 0.9 % (0-4); Hematocrit 42.8 % (42.0-52.0); Hemoglobin 14.2 g/dl (14.0-18.0); Imm Gran Abs Auto 0.07 X10*3/uL (0.00-0.03); Imm Gran Pct Auto 1.1 % (0.0-0.4); Lymphocytes Absolute Auto 1.9 X10*3/uL (1.2-4.9); Lymphocytes Percent Auto 28.8 % (20-40); Mean Corpuscular HGB Conc 33.2 g/dl (31.0-36.0); Mean Corpuscular Hemoglobin 30.3 pg (27.0-33.0); Mean Corpuscular Volume 91.3 fL (80.0-98.0); Mean Platelet Volume 8.8 fL (9.4-12.4); Monocytes Absolute Auto 1.2 X10*3/uL (0.1-1.2); Monocytes Percent Auto 18.3 % (2-11); Neutrophils Absolute Auto 3.3 x10*3/uL (2.0-8.3); Neutrophils Percent Auto 49.7 % (45-73); Platelet Count 237 X10*3/uL (160-400); Red Blood Count 4.69 X10*6/uL (4.60-5.80); Red Cell Distribution Width 14.6 % (11.0-16.0); White Blood Count 6.7 X10*3/uL (4.8-10.8)
== END 2022-09-20 12:28 | disposition home or self-care (01) ==
LOC: HO.LNP 12:27
PROVIDERS: PCP Internal Medicine; Visit Provider Internal Medicine
DX: D70.9 Neutropenia, unspecified (principal)
CPT/HCPCS: 85025

== ENCOUNTER → 2022-10-24 07:52 | Outpatient (REF) | payer OTHER, SELFPAY ==
--- NOTE | 2022-10-24 07:57 | CA_ITS ---
Transthoracic Echocardiogram Patient (Last, First, Middle): Clay Mcallister M Gender: Male Date of : 1955 Age: 66 Procedure Date: 10/24/2022 Procedure Type: Transthoracic Echocardiogram Location: OP Height: 175.26 cm Weight: 78.02 kg BSA: 1.94 m2 Heart Rate: 64 bpm BP: 128 / 64 mmHg Instructor Hairspring: SB Referring MD: Rony Hopkins MD Admin Secretary: Juan Pablo Horan MD Symptoms: I34.0 - Nonrheumatic mitral (valve) insufficiency Study Quality: Adequate ECG Rhythm: Sinus Conclusions: - 1. Normal LV systolic function with LVEF of 65-70% with upper limits of normal LV size at 5.5 cm end diastolic dimension 2. Moderately dilated left atrium 3. Posterior middle scallop prolapse, severe with possibly severe eccentric mitral regurgitation. Consider REJI as well as quantitative analysis by continuity equation 4. Upper limits of normal ascending aortic size 5. No pericardial effusion Findings Left Ventricle Normal left ventricular size, thickness, and systolic function. The visually estimated ejection fraction is between 65-70%. Diastolic function is indeterminate on the basis of available data. Right Ventricle Normal right ventricular cavity size and systolic function. Atria The left atrium is moderately dilated. There is no evidence of interatrial shunt. The right atrium is normal in size. Aortic Valve Normal aortic valve structure and function. There is no aortic valve stenosis. There is no aortic valve regurgitation. Mitral Valve There is mild anterior and moderate posterior mitral leaflet thickening. There is severe anterior mitral leaflet prolapse. There is severe mitral valve regurgitation. The mitral regurgitation jet is directed anteriorly. Pulmonic Valve The pulmonic valve is likely normal. Tricuspid Valve Normal tricuspid valve structure. Tricuspid regurgitation envelope is inadequate for calculation of right ventricular systolic pressure. Normal right atrial pressure. Great Vessels There is no dilatation of the ascending aorta. The visualized portions of the pulmonary artery and branches are normal. Venous The inferior vena cava is normal in size and collapses greater than 50% with inspiration. Pericardium/Pleural There is no evidence of pericardial effusion. Prior Study Comparison No significant change compared to prior study dated: 05/03/2022. Recommendations, Care & Conclusions Consider a REJI if clinically appropriate. Measurements 2D Linear Measurements IVSd: 0.92 0.6-0.9/0.6-1.0 cm LVIDd: 5.50 3.9-5.3/4.2-5.9 cm LVIDd Index: 2.84 2.4-3.2/2.2-3.1 cm/m2 LVIDs: 3.40 2.0-3.6 cm LVPWd: 0.72 0.7-1.1 cm LA Diam: 4.30 2.7-3.8/3.0-4.0 cm LAIDs Index: 2.22 1.5-2.3 cm/m2 LV Mass: 205.52 67-162/88-224 g LV Mass Index: 105.94 43-95/49-115 g/m2 LVOT Diam: 2.10 3.0+(-)1.3 cm 2D Systolic Function EF 4C: 70.00 >55% EF 2C: 71.60 >55% EF BiP: 70.60 >55% Mitral Valve MV Pk E: 1.75 MV PK A: 0.72 MV Decel Time: 180.00 E/A: 2.40 E'Lateral: 6.74 E'Medial: 7.62 E/E' Med: 23.00 E/E' Lat: 26.00 PHT: 53.00 MVA PHT: 4.15 Decel [place]: 9.75 MR Vol - PW Dopp: 115.28 MR VTI: 1.31 MR ERO: 88.00 MR Alias Oli: 0.39 MR RAD: 1.30 Aortic Valve AoV Pk Oli: 1.12 AoV Pk Grad: 5.00 NAZIA: 4.31 LVOT LVOT Pk Oli: 1.17 LVOT Mn Oli: 0.72 LVOT VTI: 0.20 LVOT Pk Grad: 5.00 LVOT Mn Grad: 3.00 LVOT Diam: 2.10 LVOT Area: 3.46 Diastolic Function MV Pk E: 1.75 MV Pk A: 0.72 E/A: 2.40 E'Medial: 7.62 E/E' Med: 23.00 E' Laterial: 6.74 E/E' Lat: 26.00 Right Ventricle TAPSE (mm): 27.70 TVS' Oli: 16.70 Tricuspid Valve RA Press: 3.00 Great Vessels Aorta Sinus of Valsalva: 3.40 2.0-3.5 cm Ao Asc: 3.50 2.1-3.4 cm Pulmonary Valve PV Pk Oli: 1.35 Peak PV Grad: 7.00 Updated in Other Vendor System with Status of Final Juan Pablo Horan MD electronically signed on 10/25/2022 12:29:02 PM with status of Final
== END ==
LOC: HO.CARD 07:52
PROVIDERS: Visit Provider Internal Medicine
DX: I34.0 Nonrheumatic mitral (valve) insufficiency (principal)
CPT/HCPCS: 93306

== ENCOUNTER → 2022-10-24 07:57 | Outpatient (BNV) | payer OTHER, SELFPAY | PROVIDERS: Visit Provider Internal Medicine Cardiovascular Disease | DX: I34.0 Nonrheumatic mitral (valve) insufficiency (principal) | CPT/HCPCS: 93306 ==

== ENCOUNTER 2022-11-02 15:13 | Outpatient (AMB) | payer OTHER, SELFPAY ==
--- NOTE | 2022-11-02 15:16 | A.OFFVIS_ITS ---
Intake Vital Signs 11/02/22 15:17 Height 5 ft 9 in Weight 178 lb 9.191 oz BMI 26.4 BP 122/80 Blood Pressure Location Lt brachial Position Sitting Pulse 64 Intake Visit Reasons: 6 mth f/up w/ echo Intake Note: 6 month follow up And Taxi Instructor Bus Trolley Required: No Accompanied by: Self / Same As Patient Allergies No Known Allergies Allergy (Mild, Verified 11/02/22 15:20) NOT APPLICABLE Medication List - Last Reconciled 11/02/22 by Rony Hopkins MD clobetasol 0.05% grams topical BID metoprolol succinate ER 50 mg PO BID HPI HPI Comments History of Present Illness Details Clay returns for follow-up regarding mitral regurgitation. He has got absolutely no symptoms. No angina or shortness of breath or dizzy spells or in fact anything cardiac sounding. Seems to be getting along fine. PFSH Medical History Heart murmur Surgical History H/O colonoscopy Hx of hand surgery Family History Father No problems noted. Mother No problems noted. Social History Alcohol intake: current Alcohol intake frequency: 3 or more drinks per day Alcohol type: hard liquor Patient Tobacco Use Status: Former Tobacco user Quit Date: 1999 Review of Systems Const Denies weakness ENT Denies dizziness Card Denies chest pain, Denies chest pain with activity, Denies syncope, Denies rapid heart rate, Denies pedal edema, Denies edema, Denies leg edema, Denies lightheadedness, Denies palpitations, Denies dyspnea, Denies dyspnea on exertion and Denies orthopnea Resp Denies cough, Denies dyspnea and Denies dyspnea on exertion GI Denies hematochezia and Denies change in stool character Musc Denies abnormal gait, Denies muscle cramps, Denies muscle weakness, Denies numbness, Denies radiating pain into limb and Denies tingling Neuro Denies abnormal gait, Denies dizziness, Denies syncope, Denies numbness, Denies tingling and Denies weakness Endo Denies palpitations Physical Exam Vital Signs: Last Vital Signs Pulse 64 11/02/22 15:17 BP 122/80 11/02/22 15:17 BMI result Body Mass Index 26.4 Const General: comfortable and no acute distress Orientation/consciousness: patient oriented x3 HEENT Other: Unremarkable Head: Yes normal to inspection Neck Neck: Yes normal visual inspection Chest Chest palpation & inspection: normal inspection of the chest Resp Auscultation: clear to auscultation bilaterally Cardio Palpation: normal PMI Heart sounds: S1 normal heart sound present, S2 normal heart sound present, no gallops, Murmur heart sound present systolic III/ and no rubs GI Palpation (GI): Soft to palpation Back/Spine/Pelvis Other: unremarkable Skin General skin exam: no rashes or lesions noted Neuro General: patient oriented x3 Extrem General: Yes normal to inspection Psych Mental Status: mental status grossly normal Office Procedures EKG Details: EKG with sinus rhythm at 64/Min; left ventricular hypertrophy with QRS widening/repolarization[place] [id number]-[id number], Complete Assessment & Plan Assessment & Plan (1) Non-rheumatic mitral regurgitation: Code(s): I34.0 - Nonrheumatic mitral (valve) insufficiency Plan: Recent echocardiogram images as well as report reviewed. LVEDD upon my measurement is 5.3 cm. LV ESD 3.4 cm. Left atrium moderately enlarged. Possibly severe mitral regurgitation. Anteriorly directed jet. Posterior leaflet prolapse. Overall, no major change compared to before. Pathophysiology of mitral regurgitation discussed with patient. Explained symptoms, natural course and treatment options. He has got absolutely no symptoms and extremely active with no limitations. Hence we will follow him clinically and by echocardiograms. Repeat in 6 months time. If any concerning symptoms, he will contact us. (2) Elevated blood pressure reading without diagnosis of hypertension: Code(s): R03.0 - Elevated blood-pressure reading, without diagnosis of hypertension Plan: He states he is now taking metoprolol. Today's blood pressure is normal. Coding Level of Care Code Est Pt Level 4 (52693) Diagnoses Non-rheumatic mitral regurgitation I34.0 Elevated blood pressure reading without diagnosis of hypertension R03.0 CPT Codes EKG - CPT: 86052-[id number], Complete ([id number])
[2022-11-02 15:17] VITALS: BP 122/80; PULSE 64; BMI 26.4
== END 2022-11-02 15:43 | disposition home or self-care (01) ==
PROVIDERS: PCP Internal Medicine; Referring Provider Internal Medicine; Visit Provider Internal Medicine
DX: I34.0 Nonrheumatic mitral (valve) insufficiency (principal); R03.0 Elevated blood-pressure reading, without diagnosis of hypertension
CPT/HCPCS: 93010; 99214

== ENCOUNTER → 2022-11-02 15:13 | Outpatient (BNVA) | payer OTHER, SELFPAY | PROVIDERS: PCP Internal Medicine; Referring Provider Internal Medicine; Visit Provider Internal Medicine | DX: I34.0 Nonrheumatic mitral (valve) insufficiency (principal); R03.0 Elevated blood-pressure reading, without diagnosis of hypertension; Z79.899 Other long term (current) drug therapy | CPT/HCPCS: 93005 ==

== ENCOUNTER → 2023-04-26 15:07 | Outpatient (BNVA) | payer OTHER, SELFPAY | PROVIDERS: PCP Internal Medicine; Visit Provider Nurse Practitioner ==

== ENCOUNTER → 2023-05-23 07:54 | Outpatient (REF) | payer OTHER, SELFPAY ==
--- NOTE | 2023-05-23 07:56 | CA_ITS ---
Transthoracic Echocardiogram Patient (Last, First, Middle): Clay Mcallister M Gender: Male Date of : 1955 Age: 67 Procedure Date: 05/23/2023 Procedure Type: Transthoracic Echocardiogram Location: OP Height: 172.72 cm Weight: 78.47 kg BSA: 1.92 m2 Heart Rate: bpm BP: 132 / 74 mmHg Flanging Operator: JORGE Referring MD: Kristel Beauchamp SESSIONS CLERK Sounding Device Operator: Juan Pablo Horan MD Symptoms: I34.0 - Nonrheumatic mitral (valve) insufficiency Study Quality: Adequate ECG Rhythm: Sinus Conclusions: - 1. Normal LV systolic function with LVEF of 65-70% 2. At least moderately dilated left atrium 3. Severe prolapse of the posterior mitral leaflet with severe eccentric mitral regurgitation 4. No gross pericardial effusion Findings Left Ventricle Normal left ventricular size, thickness, and systolic function. The visually estimated ejection fraction is between 65-70%. Spectral Doppler is indicative of a normal filling pattern. Peak GLS is -22.5%, within normal limits. Right Ventricle Normal right ventricular cavity size and systolic function. Atria The left atrium is moderately dilated. There is no evidence of interatrial shunt. The right atrium is normal in size. Aortic Valve Normal aortic valve structure and function. There is no aortic valve stenosis. There is no aortic valve regurgitation. Mitral Valve The mitral valve appears myxomatous. There is severe posterior mitral leaflet prolapse. There is severe mitral valve regurgitation. The mitral regurgitation jet is directed anteriorly. Pulmonic Valve The pulmonic valve is likely normal. Tricuspid Valve Normal tricuspid valve structure. Normal right atrial pressure. Great Vessels All visible segments of the aorta are normal in size. The pulmonary artery was not well visualized. Venous The inferior vena cava is normal in size and collapses greater than 50% with inspiration. Pericardium/Pleural There is no evidence of pericardial effusion. Prior Study Comparison No significant change compared to prior study dated: 10/24/2022. Measurements 2D Linear Measurements IVSd: 1.00 0.6-0.9/0.6-1.0 cm LVIDd: 4.96 3.9-5.3/4.2-5.9 cm LVIDd Index: 2.58 2.4-3.2/2.2-3.1 cm/m2 LVIDs: 2.97 2.0-3.6 cm LVPWd: 1.01 0.7-1.1 cm LA Diam: 4.00 2.7-3.8/3.0-4.0 cm LAIDs Index: 2.08 1.5-2.3 cm/m2 LV Mass: 225.25 67-162/88-224 g LV Mass Index: 117.32 43-95/49-115 g/m2 LVOT Diam: 2.10 3.0+(-)1.3 cm 2D Systolic Function EF 4C: 66.60 >55% EF 2C: 67.10 >55% EF BiP: 66.10 >55% Mitral Valve MV Pk E: 1.56 MV PK A: 0.91 MV Decel Time: 190.00 E/A: 1.70 E'Lateral: 7.62 E'Medial: 5.98 E/E' Med: 26.10 E/E' Lat: 20.50 PHT: 56.00 MVA PHT: 3.93 Decel [place]: 8.23 MR Vol - PW Dopp: 91.06 MR VTI: 1.57 MR ERO: 58.00 MR Alias Oli: 0.39 MR RAD: 1.10 Aortic Valve AoV Pk Oli: 1.17 AoV Mn Oli: 0.83 AoV VTI: 0.23 AoV Pk Grad: 5.00 Aov Mn Grad: 3.00 NAZIA Cont.VTI: 2.38 LVOT LVOT Pk Oli: 0.96 LVOT Mn Oli: 0.58 LVOT VTI: 0.16 LVOT Pk Grad: 4.00 LVOT Mn Grad: 2.00 LVOT Diam: 2.10 LVOT Area: 3.46 Diastolic Function MV Pk E: 1.56 MV Pk A: 0.91 E/A: 1.70 E'Medial: 5.98 E/E' Med: 26.10 E' Laterial: 7.62 E/E' Lat: 20.50 Right Ventricle TAPSE (mm): 24.90 TVS' Oli: 15.30 Tricuspid Valve RA Press: 3.00 Great Vessels Aorta Sinus of Valsalva: 3.57 2.0-3.[address] [place]: 3.13 1.7-3.4 cm Ao Asc: 3.40 2.1-3.4 cm Updated in Other Vendor System with Status of Final Juan Pablo Marline MD electronically signed on 05/24/2023 3:52:14 PM with status of Final
== END ==
LOC: HO.CARD 07:54
PROVIDERS: PCP Internal Medicine; Visit Provider Nurse Practitioner
DX: I34.0 Nonrheumatic mitral (valve) insufficiency (principal)
CPT/HCPCS: 93306; 93356

== ENCOUNTER → 2023-05-23 07:56 | Outpatient (BNV) | payer OTHER, SELFPAY | PROVIDERS: PCP Internal Medicine; Visit Provider Internal Medicine Cardiovascular Disease | DX: I34.1 Nonrheumatic mitral (valve) prolapse (principal); I34.0 Nonrheumatic mitral (valve) insufficiency | CPT/HCPCS: 93306; 93356 ==

== ENCOUNTER 2023-06-29 14:40 | Outpatient (AMB) | payer OTHER, SELFPAY ==
[2023-06-29 14:42] VITALS: BP 140/70; PULSE 68; BMI 26.8
--- NOTE | 2023-06-29 14:42 | MHC.OFFVIS ---
Vital Signs 06/29/23 14:42 Height 5 ft 9 in Weight 181 lb 3.52 oz BMI 26.8 BP 140/70 H Blood Pressure Location Lt brachial Position Sitting Pulse 68 Pulse Source Pulse Oximeter Intake Visit Reasons: s/p echo [employer] Supervisor Required: No Allergies No Known Allergies Allergy (Mild, Verified 11/02/22 15:20) NOT APPLICABLE Medication List - Last Reconciled 06/29/23 by Rony Hopkins MD clobetasol 0.05% grams topical BID metoprolol succinate ER 50 mg PO ONCE HPI Comments Details: Clay returns for follow-up regarding mitral regurgitation. From a clinical standpoint, he does not have any symptoms like chest pains or shortness of breath or in fact anything cardiac sounding. Seems to be getting along okay. [facility] Medical History (Updated 06/29/23 @ 15:25 by Rony Hopkins MD) Essential hypertension Heart murmur Surgical History H/O colonoscopy Hx of hand surgery Family History Father No problems noted. Mother No problems noted. Social History Alcohol intake: current Alcohol intake frequency: 3 or more drinks per day Alcohol type: hard liquor Patient Tobacco Use Status: Former Tobacco user Quit Date: 1999 Review of Systems Const Denies chills, Denies fatigue, Denies fever(s), Denies frequent falls, Denies weakness, Denies weight gain and Denies weight loss ENT Denies dizziness Card Denies chest pain, Denies leg edema, Denies lightheadedness, Denies palpitations, Denies dyspnea and Denies dyspnea on exertion Resp Denies cough, Denies dyspnea and Denies dyspnea on exertion GI Denies hematochezia Musc Denies abnormal gait, Denies muscle weakness, Denies numbness, Denies radiating pain into limb and Denies tingling Neuro Denies abnormal gait, Denies dizziness, Denies frequent falls, Denies numbness, Denies tingling and Denies weakness Endo Denies fatigue and Denies palpitations Physical Exam Vital Signs: Last Vital Signs Pulse 68 06/29/23 14:42 BP 140/70 H 06/29/23 14:42 BMI result Body Mass Index 26.8 Const General: comfortable and no acute distress Orientation/consciousness: patient oriented x3 HEENT Other: Unremarkable Head: Yes normal to inspection Neck Neck: Yes normal visual inspection Chest Chest palpation & inspection: normal inspection of the chest Resp Auscultation: clear to auscultation bilaterally Cardio Palpation: normal PMI Heart sounds: S1 normal heart sound present, S2 normal heart sound present, no gallops, Murmur heart sound present systolic III/ and no rubs GI Palpation (GI): Soft to palpation Back/Spine/Pelvis Other: unremarkable Skin General skin exam: no rashes or lesions noted Neuro General: patient oriented x3 Extrem General: Yes normal to inspection Psych Mental Status: mental status grossly normal Assessment & Plan Assessment & Plan (1) Non-rheumatic mitral regurgitation: Code(s): I34.0 - Nonrheumatic mitral (valve) insufficiency Category: Medical Plan: In the recent echocardiogram, 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 LVEF is preserved at 65-70% with normal peak global longitudinal strain. Findings discussed with patient. We discussed about watchful waiting as well as proceeding with REJI now in anticipation of valve repair. He states that he would like to rather proceed with thinks now. Hence will arrange REJI. After that, possibly cardiac catheterization and surgical consultation based on findings. (2) Essential hypertension: Code(s): I10 - Essential (primary) hypertension Category: Medical Plan: Per patient, taking metoprolol once a day. We can add amlodipine 2.5 mg daily. Orders: Orders CA echo transesophageal Today I34.0 - Nonrheumatic mitral (valve) insufficiency Medications: New amlodipine 2.5 mg PO DAILY 90 tabs 3RF
== END 2023-06-29 15:22 | disposition home or self-care (01) ==
PROVIDERS: PCP Internal Medicine; Visit Provider Internal Medicine
DX: I34.0 Nonrheumatic mitral (valve) insufficiency (principal); I10 Essential (primary) hypertension
CPT/HCPCS: 99214

== ENCOUNTER → 2023-06-29 14:40 | Outpatient (BNVA) | payer OTHER, SELFPAY | PROVIDERS: PCP Internal Medicine; Visit Provider Internal Medicine ==

== ENCOUNTER 2023-07-14 10:01 | Day surgery (SDC) | payer OTHER, SELFPAY ==
[2023-07-12 12:08] VITALS: BMI 26.7
--- NOTE | 2023-07-12 12:44 | HO.ANESPROP2 ---
HPI - Anesthesia Eval Consult details Narrative: 67yo M for Transesophageal Echocardiogram [facility] Active Problems Active Problems: All Active Problems Elevated blood pressure reading without diagnosis of hypertension (Acute) Non-rheumatic mitral regurgitation (Acute) Essential hypertension (Acute) Past Medical History Medical History Essential hypertension Heart murmur Family History Family History Father No problems noted. Mother No problems noted. Surgical History Surgical History H/O colonoscopy Hx of hand surgery History of Problems with Anesthesia: No Social History Social History Alcohol intake: current Alcohol intake frequency: 3 or more drinks per day Alcohol type: hard liquor Patient Tobacco Use Status: Former Tobacco user Quit Date: 1999 Tobacco use type: Cigarette Meds Allergies Allergy/AdvReac Type Severity Reaction Status Date / Time No Known Allergies Allergy Mild NOT Verified 11/02/22 15:20 APPLICABLE Home Medications ?Medication ?Instructions ?Recorded ?Confirmed ?Last Taken ?Type clobetasol 0.05 % topical foam g topical BID 05/05/22 06/29/23 Unknown History metoprolol succinate 50 mg 50 mg PO DAILY 06/29/23 07/12/23 07/14/23 History tablet,extended release 24 hr Exam Height,Weight and Vital Signs: Height 5 ft 9 in Weight 82.1 kg Narrative Narrative: ECHO 05/2023 Conclusions: - 1. Normal LV systolic function with LVEF of 65-70% 2. At least moderately dilated left atrium 3. Severe prolapse of the posterior mitral leaflet with severe eccentric mitral regurgitation 4. No gross pericardial effusion Assessment and Plan Assessment Anesthesia Assessment: Chart Reviewed Final Anesthetic Review History of Problems with Anesthesia: No
[2023-07-14 10:49] VITALS: BP 115/69; PULSE 58; RESP 18; TEMP 36.2; O2SAT 96
--- NOTE | 2023-07-14 11:00 | HO.ANESPROP2 ---
[facility] Active Problems Active Problems: All Active Problems Elevated blood pressure reading without diagnosis of hypertension (Acute) Non-rheumatic mitral regurgitation (Acute) Essential hypertension (Acute) Past Medical History Medical History Essential hypertension Heart murmur Functional capacity: independent ambulation Family History Family History Father No problems noted. Mother No problems noted. Family history of problems with anesthesia: No Surgical History Surgical History H/O colonoscopy Hx of hand surgery History of Problems with Anesthesia: No Social History Social History Alcohol intake: current Alcohol intake frequency: 3 or more drinks per day Alcohol type: hard liquor Patient Tobacco Use Status: Former Tobacco user Quit Date: 1999 Tobacco use type: Cigarette Advance Directives: No (unknown) Advance Directives Information Provided: Yes Advance Directives on File: No Meds Allergies Allergy/AdvReac Type Severity Reaction Status Date / Time No Known Allergies Allergy Mild NOT Verified 11/02/22 15:20 APPLICABLE Active Medications: Current Medications Lactated Ringer's (Lr) 1,000 mls @ 100 mls/hr IVCONT .Q10H [place] Home Medications ?Medication ?Instructions ?Recorded ?Confirmed ?Last Taken ?Type clobetasol 0.05 % topical foam g topical BID 05/05/22 06/29/23 Unknown History metoprolol succinate 50 mg 50 mg PO DAILY 06/29/23 07/12/23 07/14/23 History tablet,extended release 24 hr Exam Height,Weight and Vital Signs: Height 58 ft Weight 81.647 kg Last Vital Signs Temp 97.2 F 07/14/23 10:49 Pulse 58 07/14/23 10:49 Resp 18 07/14/23 10:49 BP 115/69 07/14/23 10:49 Pulse Ox 96 07/14/23 10:49 O2 Del Method Room Air 07/14/23 10:49 Airway Mallampati Class: II TM Dist: >3cm Neck ROM: Full Assessment and Plan Assessment Anesthesia Assessment: Anesthesia Plan Discussed Final Anesthetic Review Family History of Problems with Anesthesia: No History of Problems with Anesthesia: No NPO: Yes ASA Class: III Final Preanesthetic Review: Meds/Allgs Chart Reviewed, Consent Obtained/Reviewed and Anes Risks/Benef Reviewed Patient Risk: Intermediate Procedure Risk: Low Anesthetic Plan Anesthetic Plan: GA Disposition: Standard PACU
[2023-07-14 11:15] VITALS: BP 115/69; PULSE 58; RESP 18; TEMP 36.2; O2SAT 96
--- NOTE | 2023-07-14 11:18 | PC.NURSE ---
dr. sanches at bedside. #20 rac & #20 lac obtained. ok'd by both Dr. Hopkins and Dr. Sanches
--- NOTE | 2023-07-14 11:37 | CA_ITS ---
Transesophageal Echocardiogram Patient (Last, First, Middle): Clay Mcallister M Gender: Male Date of : 1955 Age: 67 Procedure Date: 07/14/2023 Procedure Type: Transesophageal Echocardiogram Location: OP Height: 172. cm Weight: 78. kg BSA: 1.91 m2 Heart Rate: 72 bpm BP: 132 / 83 mmHg Compliance Monitor: SB Referring MD: Rony Hopkins MD Symptoms: I34.0 - Nonrheumatic mitral (valve) insufficiency Conclusion: ??? The left ventricular systolic function is normal. The visually estimated ejection fraction is between 65-70%. ??? Severe prolapse of posterior mitral leaflet. Suspect torn chord. Involvement of P2 scallop. Highly eccentric, probably severe mitral regurgitation along the anterior mitral leaflet. Findings Procedure Information Consent was obtained prior to the procedure. The adult 3D probe was passed with no difficulty. Left Ventricle Normal left ventricular cavity size. The left ventricular systolic function is normal. The visually estimated ejection fraction is between 65-70%. There is no evidence of regional wall motion abnormalities. Right Ventricle Normal right ventricular cavity size and systolic function. Atria There is no evidence of a thrombus in the left atrial appendage. There is no evidence of interatrial shunt by color Doppler. Aortic Valve There is a normal trileaflet aortic valve. There is no aortic valve stenosis. There is no aortic valve regurgitation. Mitral Valve Severe prolapse of posterior mitral leaflet. Suspect torn chord. Involvement of P2 scallop. Highly eccentric, probably severe mitral regurgitation along the anterior mitral leaflet. Could not do quantitative analysis with PISA due to the marked eccentricity. No obvious pulmonary vein flow reversal. Pulmonic Valve The pulmonic valve was not well visualized. Tricuspid Valve Normal tricuspid valve structure. There is trace tricuspid valve regurgitation. Great Vessels The asc aorta is normal in size. No more than minimal to mild plaque in visualized portions of arch and proximal descending thoracic aorta. Pericardium/Pleural There is no evidence of pericardial effusion. Prior Study Comparison No significant change compared to prior study dated: 05/23/2023. Measurements Mitral Valve MR Alias Oli: 0.39 MR RAD: 1.20 Updated by Rony Hopkins on 12:25 PM with Status of Final Rony Hopkins MD electronically signed on 07/16/2023 12:25:34 PM with status of Final
--- NOTE | 2023-07-14 12:05 | MHC.SHP ---
Pre-Procedural Eval Section A - 24 Hr Update-Section A only Date of Service: 07/14/23 The patient is an INPATIENT: No Section B - Complete if H&P > 30 days Chief Complaint: Nonrheumatic mitral (valve) insufficiency Allergies: Allergies Allergy/AdvReac Type Severity Reaction Status Date / Time No Known Allergies Allergy Mild NOT Verified 11/02/22 15:20 APPLICABLE Plan I have reviewed the history and physical and performed a pertinent physical examination on my patient. No changes have occurred unless specified. Time Spent With Patient Time: Total time managing care of this patient today ____ minutes.
[2023-07-14 13:40] VITALS: BP 107/69; PULSE 66; RESP 18; TEMP 36.3; O2SAT 96
[2023-07-14 13:55] VITALS: BP 105/67; PULSE 53; RESP 20; TEMP 36.4; O2SAT 97
== END 2023-07-14 14:33 | disposition home or self-care (01) ==
PROVIDERS: PCP Internal Medicine; Visit Provider Internal Medicine
PROC: (CPT 93312; principal; 2023-07-14 13:00)
DX: I34.0 Nonrheumatic mitral (valve) insufficiency (principal); I10 Essential (primary) hypertension; R01.1 Cardiac murmur, unspecified; Z79.899 Other long term (current) drug therapy; Z87.891 Personal history of nicotine dependence
CPT/HCPCS: 93312; J2704

== ENCOUNTER → 2023-07-14 11:37 | Outpatient (BNV) | payer OTHER, SELFPAY | PROVIDERS: PCP Internal Medicine; Visit Provider Internal Medicine | DX: I34.0 Nonrheumatic mitral (valve) insufficiency (principal); I34.1 Nonrheumatic mitral (valve) prolapse; R93.1 Abnormal findings on diagnostic imaging of heart and coronary circulation | CPT/HCPCS: 76376; 93312; 93320 ==

== ENCOUNTER 2023-07-31 11:15 | Outpatient (REF) | payer OTHER, SELFPAY ==
[2023-07-31 11:17] LABS: MANUAL DIFF FLAG NO
[2023-07-31 11:38] LABS: Basophils Percent Auto 0.5 % (0-2); Eosinophils Absolute Auto 0.2 X10*3/uL (0.0-0.4); Eosinophils Percent Auto 2.9 % (0-4); Hematocrit 44.8 % (42.0-52.0); Hemoglobin 14.7 g/dl (14.0-18.0); Imm Gran Abs Auto 0.03 X10*3/uL (0.00-0.03); Imm Gran Pct Auto 0.5 % (0.0-0.4); Lymphocytes Absolute Auto 1.8 X10*3/uL (1.2-4.9); Lymphocytes Percent Auto 28.5 % (20-40); Mean Corpuscular HGB Conc 32.8 g/dl (31.0-36.0); Mean Corpuscular Hemoglobin 29.1 pg (27.0-33.0); Mean Corpuscular Volume 88.5 fL (80.0-98.0); Mean Platelet Volume 9.2 fL (9.4-12.4); Monocytes Absolute Auto 0.7 X10*3/uL (0.1-1.2); Monocytes Percent Auto 11.1 % (2-11); Neutrophils Absolute Auto 3.7 x10*3/uL (2.0-8.3); Neutrophils Percent Auto 56.5 % (45-73); Platelet Count 205 X10*3/uL (160-400); Red Blood Count 5.06 X10*6/uL (4.60-5.80); Red Cell Distribution Width 14.1 % (11.0-16.0); White Blood Count 6.5 X10*3/uL (4.8-10.8)
[2023-07-31 11:44] LABS: Appearance Urine Clear; Color Urine Yellow; Glucose Urine UA Negative (Negative); Leukocyte Esterase Urine Trace (Negative); Nitrite Urine Negative (Negative); UMIC TRIGGER UACC YES; Urine Blood Negative (Negative); Urine Ketones Negative (Negative); Urine Protein Negative (Neg-Trace)
[2023-07-31 11:48] LABS: Bacteria Urine None Seen (None Seen); Hyaline Casts Urine 0-2 /LPF (0-2); RBC Urine 0-2 /HPF (0-2); Squamous Epithelial Cell Urine 0-2 /HPF (0-2); WBC Urine 0-5 /HPF (0-5)
[2023-07-31 11:56] LABS: Alanine Aminotransferase 20 U/L (0-40); Albumin Level 4.2 g/dL (3.5-5.0); Alkaline Phosphatase 53 U/L (39-117); Anion Gap 14 (12-20); Aspartate Amino Transferase 19 U/L (5-37); Bilirubin Total 0.5 mg/dL (0.0-1.0); Blood Urea Nitrogen 17 mg/dL (9-16); Calcium 9.1 mg/dL (8.4-10.2); Carbon Dioxide 26 mmol/L (22-29); Chloride 108 mmol/L (96-108); Cholesterol 165 mg/dL (<200); Estimated Glomerular Filt Rate > 60; Glucose Fasting 106 mg/dL (60-99); HDL Cholesterol 55 mg/dL (>40); LDL Cholesterol Calculated 100 mg/dL (<100); Potassium 4.3 mmol/L (3.3-5.1); Sodium 144 mmol/L (135-145); Total Protein 6.6 g/dL (6.5-8.0); Triglycerides 54 mg/dL (<150)
[2023-07-31 12:13] LABS: PSA,Total (Free>4and<10) 1.72 ng/mL (0.00-4.00)
== END 2023-07-31 11:16 | disposition home or self-care (01) ==
LOC: HO.LNP 11:15
PROVIDERS: Visit Provider Internal Medicine
DX: Z12.5 Encounter for screening for malignant neoplasm of prostate (principal)
CPT/HCPCS: 80053; 80061; 81001; 84153; 85025

== ENCOUNTER → 2023-08-17 23:59 | Outpatient (BNV) | payer OTHER, SELFPAY | PROVIDERS: PCP Internal Medicine; Visit Provider Internal Medicine Cardiovascular Disease | DX: I34.0 Nonrheumatic mitral (valve) insufficiency (principal) | CPT/HCPCS: 93458; 93571; 99152 ==

== ENCOUNTER 2023-10-07 05:31 | Emergency (ER) | payer BC, SELFPAY ==
--- NOTE | ~2023-10-07 | CT_ITS ---
EXAM: Contrast-enhanced CT scan of the chest, abdomen, and pelvis. INDICATION: 6 foot fall onto handlebars COMPARISON: CT abdomen pelvis August 08, 2016 TECHNIQUE: Multidetector helical imaging of the chest, abdomen, and pelvis was obtained from the thoracic inlet through the pubic symphysis following administration of 85 cc of Omnipaque 350 IV contrast. Coronal and sagittal reformatted images that were obtained were also reviewed. This CT examination was performed using dose optimization techniques as appropriate, variously including the following: *Automated exposure control *Adjustment of mA and/or kV according to patient size (this includes techniques or standardized protocols for targeted exams where dose is matched to indication/reason for exam; i.e. extremities or head) *Use of iterative reconstruction technique DLP: 786 mGy-cm FINDINGS: CHEST: Central airways are patent. Lungs are well aerated. Mild emphysematous changes are present. There is no lobar consolidation. No pleural effusion or pneumothorax. There is some mild suspected right middle lobe atelectasis. Punctate calcified granuloma of the left lower lobe. No suspicious pulmonary nodules. The heart is normal in size. Coronary artery calcifications are present. There is no pericardial effusion. Normal caliber thoracic aorta. No gross mediastinal or hilar lymphadenopathy. No pathologically enlarged axillary lymph nodes. ABDOMEN/PELVIS: The liver is normal in size. The gallbladder is normal in appearance. There is mild fatty atrophy of the pancreas. The spleen and adrenal glands are unremarkable. Symmetrically enhancing kidneys without hydronephrosis. Normal caliber loops of small and large bowel. Mild colonic diverticulosis. Normal appendix. Normal caliber abdominal aorta demonstrating only minimal atherosclerotic disease. No retroperitoneal lymphadenopathy. There is diffuse subcutaneous stranding of the midline ventral abdominal wall, most consistent with hematoma. There is no well organized fluid collection present. The bladder is normal in appearance. The prostate gland is at the upper limits of normal in size. Small fat-containing inguinal hernias are present. No inguinal lymphadenopathy. No gross free pelvic fluid. OSSEOUS STRUCTURES Moderate diffuse degenerative changes of the spine. Stable subcentimeter sclerotic density within the L5 vertebral body, statistically a bone island. CT/CT abdomen pelvis w IV con IMPRESSION: 1. Diffuse subcutaneous stranding of the midline ventral abdominal wall, most consistent with hematoma. There is no well organized fluid collection present. 2. Mild emphysema. 3. Mild colonic diverticulosis.
[2023-10-07 05:36] VITALS: BMI 26.0
[2023-10-07 05:41] VITALS: BP 140/97; PULSE 69; RESP 16; TEMP 36.7; O2SAT 97
--- OUTSIDE RECORDS SUMMARY | 2023-10-07 06:10 | XMS_ITS ---
Author Organization Jem Moctezuma MD Address [address] [place] [phone] Care Team Providers Care Customer Success Representative Name Role Phone Jem Moctezuma Primary Care Provider [phone] ALLERGIES No Known Allergies RESULTS Component Value Reference Range Notes Occult Blood, Stool, Guaiac Reviewed date:08/10/2023 03:09:33 PM Interpretation:Negative Performing Lab: Notes/Report: Negative Occult Blood, Stool, Guaiac Neg REASON FOR VISIT ANNUAL EXAM, NO Covid symptoms MEDICATIONS Medication SIG (Take, Route, Frequency, Duration) Notes Start Date End Date Status Metoprolol Succinate ER 50 MG TAKE 1 TABLET BY MOUTH EVERY DAY FOR 30 DAYS Active Triamcinolone Acetonide 0.5 % 1 application to affected area Externally Twice a day for 30 days 03/20/2012 Not-Taking amLODIPine Besylate 2.5 MG 1 tablet Orally Once a day Active SOCIAL HISTORY Tobacco Use: Social History Observation Description Date Details (start date - stop date) Former Smoker NA - NA Sex Assigned At : Social History Observation Description Sex Assigned At Unknown Tobacco Use/Smoking Question Answer Notes Patient is a former smoker How long has it been since y ou last smoked? > 10 years Additional Findings: Tobacco Non-User Fo rmer smoker, currently using no form of tobacco Alcohol Screen Question Answer Notes Did you have a drink containing alcohol in the p ast year? No Points 0 Interpretation Negative VITAL SIGNS BMI 28.03 kg/m2 08/10/2023 Blood pressure systolic 102 mm Hg 08/10/19 24 Blood pressure diastolic 60 mm Hg 024 Height 67 in 08/10/2023 Weight 179 lbs 08/10/2023 weight is down 3 pounds [facility] jorge 4-26-24 Encounters Encounter Location Date Provider Diagnosis Jem Moctezuma MD [address] [place], [place] [phone] 08/10/2023 Jem Moctezuma Essential hypertension I10 ; Encounter for general adult medical examination without abnormal findings Z00.00 ; Moderate mitral regurgitation I34.0 ; Prediabetes R73.09 ; Neutropenia, unspecified type D70.9 ; Colon cancer screening Z12.11 and Depression screening Z13.31 ASSESSMENTS Encounter Date Diagnosis Assessment Notes Treatment Notes Treatment Clinical Notes 08/10/2023 Essential hypertension (ICD-10 - I10) doing well on meds, will continue current regiment 08/10/2023 Encounter for general adult medical examination without abnormal findings (ICD-10 - Z00.00) Labs reviewed and discussed with patient 08/10/2023 Moderate mitral regurgitation (ICD-10 - I34.0) going for cardiac cath 08/10/2023 Prediabetes (ICD-10 - R73.09) stable, no need for medication at this tme 08/10/2023 Neutropenia, unspecified type (ICD-10 - D70.9) resolved, will contiue to monitor 08/10/2023 Colon cancer screening (ICD-10 - Z12.11) guaiac negative 08/10/2023 Depression screening (ICD-10 - Z13.31) negative screen PLAN OF TREATMENT Medication Medication Name Sig Start Date Stop Date Notes Metoprolol Succinate ER 50 MG TAKE 1 TAB LET BY MOUTH EVERY DAY FOR 30 DAYS amLODIPine Besylate 2.5 MG 1 tablet Orally Once a day Treatment Notes Assessment Notes Essential hypertension doing well on med s, will continue current regiment Encounter for general adult medical examination without abnormal findings Labs reviewed and discussed with patient Moderate mitral regurgitation going for cardiac cath Prediabetes stable, no need for medication at this tme Neutropenia, unspecified type resolved, will contiue to monitor Colon cancer screening guaiac negative Depression screening negative screen Next Appt Details Provider Name:Jem schwartz, 10/09/2023 11:45:00 AM, [address], [address], [place], [phone], Provider Name:Jem Murillo efren, 02/02/2024 03:00:00 PM, [address] [place] [address], [address], [place], [phone], Provider Name:Jem Murillo efren, 08/06/2024 07:30:00 AM, [address] [place] [address], [address] [facility], [place], [place], [phone], Provider Name:Jem Murillo andrewr, 08/12/2024 03:30:00 PM, [address] [place] [address], [address] [facility], [place], [phone], Progress Notes * Examination Category Sub-Category Detail Notes General Examination GENERAL APPEARANCE: well dev eloped, well nourished, in no acute distress HEAD: normocephalic, atrau matic EYES: pupils equal, round, reactive to light and accommodation, sclera non-icteric EARS: normal THROAT: clear HEART: regular rate and rhy thm, S1, S2 normal, 3/6 LUNGS: clear to auscultatio n bilaterally ABDOMEN: soft, nontender, non distended, bowel sounds present, normal, no organomegaly , no masses palpable NEUROLOGIC: nonfocal, motor stre ngth normal upper and lower extremities, sensory exam intact SKIN: warm and dry, no sandra picious lesions EXTREMITIES: no clubbing, cyanosi s, or edema MALE GENITOURINARY: circumcised no penil e lesions or discharge testes descended bilaterally no testicular mass RECTAL EXAM: normal tone, no exte rnal hemorrhoids, no masses palpable, prostate normal, stool guaiac negative ORAL CAVITY: mucosa moist History and Physical Notes * HPI (History of Present Illness) Category Sub-Category Detail Notes Depression Screening PHQ-9 Little inte rest or pleasure in doing things: Not at all Feeling down, depressed, or hopeless: No t at all Trouble falling or staying asleep, or sl eeping too much: Not at all Feeling tired or having little energy: N ot at all Poor appetite or overeating: Not at all Feeling bad about yourself o r that you are a failure, or have let yourself or your family down: Not at all Trouble concentrating on thi ngs, such as reading the newspaper or watching television: Not at all Moving or speaking so slowly that other people could have noticed; or the opposite, being so fidgety or restless that you have been moving around a lot more than usual: Not at all Thoughts that you would be b bethany off or of hurting yourself in some way: Not at all Total Score: 0 Interpretation and Intervention Depression Sweetie hadley Findings: Negative Follow-Up for Depression: : review of PH Q-9 found negative result, no follow-up needed SDOH Questions SDOH Questions In the past year have you been worried about losing housing?: No In the past year have you or any family members you live with been unable to get any of the following when it was really needed? Check all that apply:: None Fall Risk History Have you had any falls with injury in the past year?: No Have you had two or more falls in the st year?: No Communication Needs Communication Needs Does the patient have a hearing impairment: No Does the patient have a vision impairmen t?: No Does the patient have a cognition impair ment?: No
--- OUTSIDE RECORDS SUMMARY | 2023-10-07 06:10 | XMS_ITS ---
Author Organization Jem Moctezuma MD Address [address] [facility] [address] [place] [phone] Care Team Providers Care Rubber Down Name Role Jem Reid Primary Care Provider [phone] REASON FOR VISIT referral Encounters Encounter Location Date Provider Diagnosis Jem Moctezuma MD [address] [facility] [address] [place] [phone] 10/05/2023 Jem Moctezuma PLAN OF TREATMENT Next Appt Details Provider Name:Jem schwartz, 10/09/2023 11:45:00 AM, [address] [place] [address], [address], [phone], Provider Name:Jem Murillo ielexii, 02/02/2024 03:00:00 PM, [address] [place] [address], [address], [phone], Provider Name:Jem Murillo ier, 08/06/2024 07:30:00 AM, [address] [place] [address], [address], [phone], Provider Name:Jem schwartz, 08/12/2024 03:30:00 PM, [address] [place] [address], [phone],
--- OUTSIDE RECORDS SUMMARY | 2023-10-07 06:10 | XMS_ITS ---
Author Organization Jem Moctezuma MD Address [address] [facility] [address] [place] [phone] Care Team Providers Care History Tutor Name Role Jem Reid Primary Care Provider [phone] REASON FOR VISIT BP Encounters Encounter Location Date Provider Diagnosis Jem Moctezuma MD [address] [facility] [address] [place] [phone] 09/07/2023 Jem Moctezuma PLAN OF TREATMENT Next Appt Details Provider Name:Jem schwartz, 10/09/2023 11:45:00 AM, [address] [place] [address], [address], [phone], Provider Name:Jem schwartz, 02/02/2024 03:00:00 PM, [address] [place] [address], [address], [phone], Provider Name:Jem schwartz, 08/06/2024 07:30:00 AM, [address] [place] [address], [phone], Provider Name:Jem schwartz, 08/12/2024 03:30:00 PM, [address] [place] [address], [phone],
--- OUTSIDE RECORDS SUMMARY | 2023-10-07 06:11 | XMS_ITS | Patient Health Record ---
Author Organization Jem Moctezuma MD Address [address] [place], [place] [id number] Care Team Providers Care Him Specialist Name Role Phone Jem Moctezuma Primary Care Provider ALLERGIES No Known Allergies RESULTS Component Value Reference Range Notes Complete Blood Count Auto Di ff Reviewed date:07/31/2023 12:57:06 PM Interpretation: Performing Lab:[facility], [address] [place] [id number] Notes/Report: White Blood Count 6.5 4.8-10.8 X10*3/uL Red Blood Count 5.06 4.60-5.80 X10*6/uL Hemoglobin 14.7 14.0-18.0 g/dl Hematocrit 44.8 42.0-52.0 % Mean Corpuscular Volume 88.5 80.0-98.0 fL Mean Corpuscular Hemoglobin 29.1 27.0-33.0 pg Mean Corpuscular HGB Conc 32.8 31.0-36.0 g/dl Red Cell Distribution Width 14.1 11.0-16.0 % Platelet Count 205 160-400 X10*3/uL Mean Platelet Volume 9.2 9.4-12.4 fL Neutrophils Percent Auto 56.5 45-73 % Imm Gran Pct Auto 0.5 0.0-0.4 % Lymphocytes Percent Auto 28.5 20-40 % Monocytes Percent Auto 11.1 2-11 % Eosinophils Percent Auto 2.9 0-4 % Basophils Percent Auto 0.5 0-2 % NRBC Pct Auto 0.0 0.0-0.2 /100WBC Neutrophils Absolute Auto 3.7 2.0-8.3 x10*3/u L Imm Gran Abs Auto 0.03 0.00-0.03 X10*3/uL Lymphocytes Absolute Auto 1.8 1.2-4.9 X10*3/u L Monocytes Absolute Auto 0.7 0.1-1.2 X10*3/uL Eosinophils Absolute Auto 0.2 0.0-0.4 X10*3/u L Basophils Absolute Auto 0.0 0.0-0.2 X10*3/uL NRBC Abs Auto 0.000 0.0-0.012 X10*3/uL Comprehensive [place]. Panel Fa st Reviewed date:07/31/2023 05:17:57 PM Interpretation: Performing Lab:[address] [phone] Notes/Report: Sodium 144 135-145 mmol/L Potassium 4.3 3.3-5.1 mmol/L Chloride 108 96-108 mmol/L Carbon Dioxide 26 22-29 mmol/L Anion Gap 14 12-20 Blood Urea Nitrogen 17 9-16 mg/dL Creatinine 0.96 0.5-1.4 mg/dL Estimated Glomerular Filt Rate > 60 NOTE: For -[place] individuals, multiply the result by 1.210. Chronic Kidney Disease: Estimated GFR < 60 mL/min/1.73m2 Severe Kidney Disease: Estimated GFR < 15 mL/min/1.73m2 Glucose Fasting 106 60-99 mg/dL A fasting glucose from 100-125 mg/dl is considered impaired (pre-diabetes). Calcium 9.1 8.4-10.2 mg/dL Bilirubin Total 0.5 0.0-1.0 mg/dL Aspartate Amino Transferase 19 5-37 U/L Alanine Aminotransferase 20 0-40 U/L Total Protein 6.6 6.5-8.0 g/dL Albumin Level 4.2 3.5-5.0 g/dL Alkaline Phosphatase 53 39-117 U/L Lipid Panel Reviewed date:07/31/2023 12:44:20 PM Interpretation: Performing Lab:[address] [place] [address] Notes/Report: Triglycerides 54 <150 mg/dL Desirable Triglyceride: less than 150 mg/dL Borderline High Triglyceride 150-199 mg/dL High Triglyceride: 200-499 mg/dL Very High Triglyceride: greater than or equal to 5OO mg/dL Cholesterol 165 <200 mg/dL Desirable Cholesterol: less than 200 mg/dL Borderline High Cholesterol: 200-239 mg/dL High Cholesterol: greater than 239 mg/dL LDL Cholesterol Calculated 100 <100 mg/dL Desirable LDL: less than 100 mg/dL Near Optimal/Above Optimal LDL: 110-129 mg/dL Borderline High LDL: 130-159 mg/dL High LDL: 160-189 mg/dL Very High LDL: greater than or equal to 190 mg/dL HDL Cholesterol 55 >40 mg/dL Desirable HDL: greater than 40 mg/dL Note: This HDL assay may give artificially low results in patients with liver disease. PSA,Total (Free>4and<10) Reviewed date:08/10/2023 02:46:51 PM Interpretation:ROBSON 08/09 Performing Lab:[address] [phone] Notes/Report: PSA,Total (Free>4and<10) 1.72 0.00-4.00 ng/mL A Free PSA was not performed: The percentage of Free PSA can be used to enhance the differentiation of prostate cancer from benign prostatic disease in subjects whose PSA levels are between 4.0 and 10.0 ng/mL. For subjects whose PSA levels are below 4.0 or above 10.0 ng/mL, the risk of prostate cancer is determined on the basis of the PSA alone. Therefore the % Free PSA is recommended only for those subjects whose PSA levels are between 4.0 and 10.0 ng/mL. PSA methodology: Urbano Alinity i Chemiluminescent Microparticle Immunoassay (CMIA) UA ClnCatch+Micro w/rflx Cul t Reviewed date:07/31/2023 05:18:40 PM Interpretation: Performing Lab:[address] [phone] Notes/Report: Urine, Clean Catch Color Urine Yellow Appearance Urine Clear PH 6.0 5.0-9.0 Glucose Urine UA Negative Negative mg/dL Urine Blood Negative Negative Specific [place] - Urine 1.020 1.005-1.025 Urine Protein Negative Neg-Trace mg/dL Urine Ketones Negative Negative mg/dL Nitrite Urine Negative Negative Leukocyte Esterase Urine Trace Negative RBC Urine 0-2 0-2 /HPF WBC Urine 0-5 0-5 /HPF Squamous Epithelial Cell Urine 0-2 0-2 /HPF Bacteria Urine None Seen None Seen Hyaline Casts Urine 0-2 0-2 /LPF Occult Blood, Stool, Guaiac Reviewed date:08/10/2023 03:09:33 PM Interpretation:Negative Performing Lab: Notes/Report: Negative Occult Blood, Stool, Guaiac Neg REASON FOR REFERRAL No Information MEDICATIONS Medication SIG (Take, Route, Frequency, Duration) Notes Start Date End Date Status Metoprolol Succinate ER 50 MG TAKE 1 TABLET BY MOUTH EVERY DAY FOR 30 DAYS Active Triamcinolone Acetonide 0.5 % 1 application to affected area Externally Twice a day for 30 days 03/20/2012 Not-Taking amLODIPine Besylate 2.5 MG 1 tablet Orally Once a day Active IMMUNIZATIONS Vaccine Route Administration Date Status Comme nts Flu Vaccine IM Intramuscular 01/18/2011 Administered Flu Vaccine Unknown 12/18/2011 Administered Flu Vaccine IM Intramuscular 01/31/2013 Administered Flu Vaccine Unknown 01/20/2014 Administered Shingles IM Intramuscular 11/04/2014 Administered Flu Vaccine Unknown 12/31/2014 Administered given at rk Flu Vaccine IM Intramuscular 12/04/2015 Administered pt wa s vaccinced at [facility] in [place]. PPSV23 (Pnemovax) IM Intramuscular 07/17/2017 Administered TDaP IM Intramuscular 07/21/2017 Administered pt was given the vaccine at [facility] Tetanus Unknown 07/21/2017 Administered Fluarix Quadrivalent Unknown 12/26/2017 Administered was given at work. Prevnar 13 IM Intramuscular 07/27/2018 Administered Shingrix IM Intramuscular 10/15/2018 Administered pt was given the vaccine at [facility] in [place]. Shingrix IM Intramuscular 07/29/2018 Administered pt was given the vaccine at [facility]. Fluarix Quadrivalent Unknown 12/29/2018 Administered [facility] SARS-COV-2 Moderna Unknown 06/24/2020 Administered SARS-COV-2 Moderna Unknown 07/22/2020 Administered Influenza High Dose IM Intramuscular 12/30/2021 Administer ed Influenza High Dose Unknown 12/30/[address] [facility] PPSV23 (Pnemovax) Unknown 07/01/2016 Refused SOCIAL HISTORY Tobacco Use: Social History Observation [...] ast year? No Points 0 Interpretation Negative PROBLEMS Problem Type ICD Code Onset Dates Problem Status W/U Status Risk SNOMED Code Notes Problem Essential hypertension (I10) Active confirmed 78563803 Problem Prediabetes (R73.09) Active confirmed 4910847 Problem Alcohol abuse (F10.10) Active confirmed Alcohol abuse (74951035) Problem Neutropenia, unspecified type (D70.9) Active confirmed 370140020 Problem Moderate mitral regurgitation (I34.0) Active confirmed 48400676 VITAL SIGNS Blood pressure diastolic 60 mm Hg 08/10/2023 maxi ght is down 3 pounds since 07-07-23 Height 67 in 08/10/2023 weight is down 3 pounds since 07-07-23 Blood pressure systolic 102 mm Hg 08/10/2023 weig ht is down 3 pounds since 07-07-23 Weight 179 lbs 08/10/2023 weight is down 3 pounds since 07-07-23 BMI 28.03 kg/m2 08/10/2023 weight is down 3 pounds since 07-07-23 Encounters Encounter Location Date Provider Diagnosis Jem Moctezuma MD [address] [place] [id number] 08/10/2023 Jem Moctezuma Essential hypertension I10 ; Encounter for general adult medical examination without abnormal findings Z00.00 ; Moderate mitral regurgitation I34.0 ; Prediabetes R73.09 ; Neutropenia, unspecified type D70.9 ; Colon cancer screening Z12.11 and Depression screening Z13.31 Jem Moctezuma MD [address] [place] [id number] 07/31/2023 Jem Moctezuma Blood tests for routine general physical examination Z00.00 ; Essential hypertension I10 and Neutropenia, unspecified type D70.9 Jem Moctezuma MD [address] [place] [id number] 02/06/2023 Jem Moctezuma Essential hypertension I10 ; Moderate mitral regurgitation I34.0 and Alcohol abuse F10.10 Jem Moctezuma MD [address] [place] [id number] 07/07/2023 Jem Moctezuma Prediabetes R73.09 and Moderate mitral regurgitation I34.0 Jem Moctezuma MD [address] [place] [id number] 10/20/2022 Jem Moctezuma MD [address] [place] [address] [id number] 11/17/2022 Jem Moctezuma MD [address] [place] [id number] 12/22/2022 Jem Moctezuma MD [address] [place] [id number] 04/06/2023 Jem Moctezuma MD [address] [place] [id number] 06/29/2023 Jem Moctezuma MD [address] [place] [address] [id number] 09/07/2023 Jem Moctezuma MD [address] [place] [id number] 10/05/2023 Jem Moctezuma ASSESSMENTS Encounter Date Diagnosis Assessment Notes Treatment Notes Treatment Clinical Notes 08/10/2023 Encounter for general adult medical examination without abnormal findings (ICD-10 - Z00.00) Labs reviewed and discussed with patient 08/10/2023 Essential hypertension (ICD-10 - I10) doing well on meds, will continue current regiment 07/31/2023 Essential hypertension (ICD-10 - I10) 07/31/2023 Blood tests for routine general physical examination (ICD-10 - Z00.00) 02/06/2023 Essential hypertension (ICD-10 - I10) doing well on meds, will continue current regiment 02/06/2023 Moderate mitral regurgitation (ICD-10 - I34.0) will continue to monitor 07/07/2023 Prediabetes (ICD-10 - R73.09) doing well, no need for medication at this time 07/07/2023 Moderate mitral regurgitation (ICD-10 - I34.0) going valve replacement to see development writer to determine if he needs 08/10/2023 Moderate mitral regurgitation (ICD-10 - I34.0) going for cardiac cath 07/31/2023 Neutropenia, unspecified type (ICD-10 - D70.9) 02/06/2023 Alcohol abuse (ICD-10 - F10.10) not having any problems at present 08/10/2023 Prediabetes (ICD-10 - R73.09) stable, no need for medication at this tme 08/10/2023 Neutropenia, unspecified type (ICD-10 - D70.9) resolved, will contiue to monitor 08/10/2023 Colon cancer screening (ICD-10 - Z12.11) guaiac negative 08/10/2023 Depression screening (ICD-10 - Z13.31) negative screen PLAN OF TREATMENT Pending Test Test Name Order Date Electrocardiogram (EKG) 06/11/2015 Electrocardiogram (EKG) 07/01/2016 Electrocardiogram (EKG) 07/21/2017 Electrocardiogram (EKG) 07/27/2018 ECHO 08/03/2020 Future Test Test Name Order Date ECHO 09/04/2021 Next Appt Details Provider Name:Jem schwartz, 10/09/2023 11:45:00 AM, [address] [place] [address], [id number], Provider Name:Jem moralesr, 02/02/2024 03:00:00 PM, [address] [place] [address], [address], [phone], Provider Name:Jem Murillo ier, 08/06/2024 07:30:00 AM, [address] [place] [address], [phone], Provider Name:Jem moralesr, 08/12/2024 03:30:00 PM, [address] [place] [address], [id number], Insurance Providers Payer Name Payer Address Payer Phone Subscriber Number Group Number Insured Name Patient Relationship to Insured Coverage Start Date Coverage End Date [employer] [address] [place], [place] [id number] Clay Mcallister Self - patient is the insured MEDICAL (GENERAL) HISTORY Medical History History ICD Code colonoscopy 02/19/2010 due in 10 years - Dr. Barroso colonoscopy done 12/01, repeat 5 years
--- OUTSIDE RECORDS SUMMARY | 2023-10-07 06:11 | XMS_ITS | Patient Health Record ---
Author Organization [facility] Address [address] [place] [address] Care Team Providers Care Aviation Neuropsychologist Name Role Phone Jem Moctezuma MD Primary Care Provider Clive Hill Unavailable [phone] ALLERGIES No Known Allergies REASON FOR REFERRAL No Information IMMUNIZATIONS Vaccine Route Administration Date Status Comme nts Influenza Unknown 12/12/2019 Administered SOCIAL HISTORY Tobacco Use: Social History Observation Description Date Details (start date - stop date) Former Smoker NA - NA Sex Assigned At : Social History Observation Description Sex Assigned At Unknown Tobacco Use/Smoking Question Answer Notes Patient is a former smoker How long has it been since you last smoked? > 10 years Alcohol Screen Question Answer Notes Did you have a drink containing alcohol in the p ast year? No Points 0 Interpretation Negative PROBLEMS Problem Type ICD Code Onset Dates Problem Status W/U Status Risk SNOMED Code Notes Problem Family history of colon cancer (Z80.0) Active confirmed 189069008 Problem Encounter for screening for malignant neoplasm of colon (Z12.11) Active confirmed 854043790 Problem Pre-procedural examination (Z01.818) Active confirmed 853082477425721 Problem Diverticulosis of colon (K57.30) Active confirmed Diverticulosi s of colon (351905145) PLAN OF TREATMENT Pending Test Test Name Order Date Pathology 11/18/2020 Future Test Test Name Order Date COLONOSCOPY 09/30/2020 Insurance Providers Payer Name Payer Address Payer Phone Subscriber Number Group Number Insured Name Patient Relationship to Insured Coverage Start Date Coverage End Date [employer] [address] [facility] [phone] [id number] SLY ANNE Self - patient is the insured MEDICAL (GENERAL) HISTORY Medical History History ICD Code Neg screening colonoscopy in 02/2010 Denies [place],DM,CVA,Lung disease,renal dise ase Surgical History Surgery Date(Month/Year) Left thumb
[2023-10-07] MEDS: 0.9 % Sodium Chloride 1,000 ML 999 ML IV (07:04)
[2023-10-07 07:16] LABS: MANUAL DIFF FLAG NO
[2023-10-07 07:17] LABS: Basophils Percent Auto 0.5 % (0-2); Eosinophils Absolute Auto 0.2 X10*3/uL (0.0-0.4); Eosinophils Percent Auto 3.3 % (0-4); Hematocrit 40.6 % (42.0-52.0); Hemoglobin 13.5 g/dl (14.0-18.0); Imm Gran Abs Auto 0.04 X10*3/uL (0.00-0.03); Imm Gran Pct Auto 0.7 % (0.0-0.4); Lymphocytes Absolute Auto 1.3 X10*3/uL (1.2-4.9); Lymphocytes Percent Auto 20.8 % (20-40); Mean Corpuscular HGB Conc 33.3 g/dl (31.0-36.0); Mean Corpuscular Volume 87.1 fL (80.0-98.0); Mean Platelet Volume 8.7 fL (9.4-12.4); Monocytes Absolute Auto 0.8 X10*3/uL (0.1-1.2); Monocytes Percent Auto 13.7 % (2-11); Neutrophils Absolute Auto 3.7 x10*3/uL (2.0-8.3); Platelet Count 180 X10*3/uL (160-400); Red Blood Count 4.66 X10*6/uL (4.60-5.80); Red Cell Distribution Width 13.8 % (11.0-16.0); White Blood Count 6.1 X10*3/uL (4.8-10.8)
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
[2023-10-07 07:23] LABS: INTERNATIONAL NORM RATIO 0.9 (0.9-1.1); Prothrombin Time 11.2 SEC (11.1-13.3)
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
[2023-10-07 07:50] LABS: Alanine Aminotransferase 15 U/L (0-40); Albumin Level 3.8 g/dL (3.5-5.0); Alkaline Phosphatase 47 U/L (39-117); Anion Gap 11 (12-20); Aspartate Amino Transferase 22 U/L (5-37); Bilirubin Total 0.5 mg/dL (0.0-1.0); Blood Urea Nitrogen 13 mg/dL (9-16); Carbon Dioxide 26 mmol/L (22-29); Chloride 110 mmol/L (96-108); Creatinine Clr Calc Pharmacy 78.6; Estimated Glomerular Filt Rate > 60; Glucose Random 102 mg/dL (60-115); Lipase 59 U/L (8-78); Potassium 4.7 mmol/L (3.3-5.1); Sodium 142 mmol/L (135-145); Total Protein 6.5 g/dL (6.5-8.0)
[2023-10-07] MEDS: iohexoL 350 MG/ML 100 ML INFUS..BTL IV (08:30)
[2023-10-07 09:25] VITALS: BP 129/81; PULSE 58; RESP 16; TEMP 36.7; O2SAT 98
[2023-10-07 10:06] VITALS: BP 129/81; PULSE 58; RESP 16; TEMP 36.7; O2SAT 98
[2023-10-07 10:06] LABS: Appearance Urine Clear; Color Urine Yellow; Glucose Urine UA Negative (Negative); Leukocyte Esterase Urine Negative (Negative); Nitrite Urine Negative (Negative); PH 6.5 (5.0-9.0); Specific Gravity - Urine >= 1.030 (1.005-1.025); Urine Blood Negative (Negative); Urine Ketones Negative (Negative); Urine Protein Negative (Neg-Trace)
== END 2023-10-07 10:06 | disposition home or self-care (01) ==
PROVIDERS: Nurse Practitioner Family; Emergency Provider Emergency Medicine; PCP Internal Medicine
DX: S30.1XXA Contusion of abdominal wall, initial encounter (principal); W17.89XA Other fall from one level to another, initial encounter; Y93.89 Activity, other specified; Y92.015 Private garage of single-family (private) house as the place of occurrence of the external cause; Y99.9 Unspecified external cause status
CPT/HCPCS: 36415; 71260; 74177; 80053; 81003; 83690; 85025; 85610; 99283; 99284; Q9967

== ENCOUNTER 2023-10-25 13:33 | Outpatient (AMB) | payer BC, SELFPAY ==
[2023-10-25 14:17] VITALS: BP 120/60; PULSE 79; BMI 26.5
--- NOTE | 2023-10-25 14:17 | MHC.OFFVIS ---
Vital Signs 10/25/23 14:17 Height 5 ft 8 in Weight 174 lb 2.643 oz BMI 26.5 BP 120/60 Blood Pressure Location Lt brachial Position Sitting Pulse 79 Pulse Source Monitor Intake Visit Reasons: follow up after cardiac cath Allergies No Known Allergies Allergy (Mild, Verified 10/07/23 05:40) NOT APPLICABLE Medication List - Last Reconciled 10/25/23 by Kristel Beauchamp NP amiodarone 200 mg PO DAILY amlodipine 2.5 mg PO DAILY aspirin 81 mg PO DAILY clobetasol 0.05% grams topical BID metoprolol succinate ER 50 mg PO DAILY HPI Comments Details: 59-year-old male presents today for follow-up after mitral valve repair. He had the repair at [facility] on 10/[address] Cruz. He reports he has been feeling very good. He has been going for daily walks and even healthy. He denies any chest pain, shortness of breath, palpitations, swelling, or orthopnea. He reports compliance with all his medications. He is currently on a 25 day regimen of amiodarone. [facility] Medical History (Updated 10/08/23 @ 00:00 by David Bowie) Essential hypertension Heart murmur Surgical History (Updated 10/26/23 @ 13:30 by Kristel Beauchamp NP) S/P mitral valve repair H/O colonoscopy Hx of hand surgery Family History Father No problems noted. Mother No problems noted. Social History Alcohol intake: former Year quit: 1999 Patient Tobacco Use Status: Former Tobacco user Tobacco use type: Cigarette Review of Systems Const Denies weakness ENT Denies dizziness Card Denies chest pain, Denies chest pain with activity, Denies syncope, Denies rapid heart rate, Denies pedal edema, Denies edema, Denies leg edema, Denies lightheadedness, Denies palpitations, Denies dyspnea, Denies dyspnea on exertion and Denies orthopnea Resp Denies cough, Denies dyspnea and Denies dyspnea on exertion GI Denies hematochezia and Denies change in stool character Musc Denies abnormal gait, Denies muscle cramps, Denies muscle weakness, Denies numbness, Denies radiating pain into limb and Denies tingling Neuro Denies abnormal gait, Denies dizziness, Denies syncope, Denies numbness, Denies tingling and Denies weakness Endo Denies palpitations Physical Exam Vital Signs: Last Vital Signs Pulse 79 10/25/23 14:17 BP 120/60 10/25/23 14:17 BMI result Body Mass Index 26.5 Office Procedures EKG Details: EKG today. Normal Sinus Rhythm. Left anterior fascular block. Prolonged QT. Ventricular rate 79 bpm. RI 208 ms. QRs 108 ms. QTc 493 ms. [id number], Complete Assessment & Plan Assessment & Plan (1) S/P mitral valve repair: Comment: 10/13/[address] Gilmer Cruz Mitral valve repair with 3 [place] NeoChord to P2 and 30 mm Physio II ring annuloplasty. Code(s): Z98.890 - Other specified postprocedural states Category: Surgical Plan Status post mitral valve repair with Dr. Cruz. Patient is on 25 day course of amiodarone. We will order cardiac rehab. Patient is agreeable. Patient to continue eating healthy and going for walks as tolerated. Report any new signs or symptoms. Ultrasound before next visit. Orders: Orders CA echo transthoracic complete 10/25/23 Z98.890 - Other specified postprocedural states Cardiac Rehab 10/25/23 Z98.890 - Other specified postprocedural states Coding Level of Care Code Est Pt Level 3 (80617) Diagnoses S/P mitral valve repair Z98.890 CPT Codes EKG - CPT: 81094-[id number], Complete ([id number])
== END 2023-10-25 14:44 | disposition home or self-care (01) ==
PROVIDERS: PCP Internal Medicine; Visit Provider Nurse Practitioner
DX: R94.31 Abnormal electrocardiogram [ECG] [EKG] (principal)
CPT/HCPCS: 93010; 99213

== ENCOUNTER → 2023-10-25 13:33 | Outpatient (BNVA) | payer BC, SELFPAY | PROVIDERS: PCP Internal Medicine; Visit Provider Nurse Practitioner | DX: Z48.812 Encounter for surgical aftercare following surgery on the circulatory system (principal) | CPT/HCPCS: 93005 ==

== ENCOUNTER → 2023-11-24 07:43 | Outpatient (REF) | payer BC, SELFPAY ==
--- NOTE | 2023-11-24 07:49 | CA_ITS ---
Transthoracic Echocardiogram Patient (Last, First, Middle): Clay Mcallister M Gender: Male Date of : 1955 Age: 68 Procedure Date: 11/24/2023 Procedure Type: Transthoracic Echocardiogram Location: OP Height: 175.26 cm Weight: 77.57 kg BSA: 1.93 m2 Heart Rate: bpm BP: 140 / 90 mmHg Food Processor: TO Referring MD: Kristel Beauchamp [employer] FORMER Symptoms: Z98.890 - Other specified postprocedural states Study Quality: Adequate ECG Rhythm: Sinus Conclusions: - Normal left ventricular cavity size. There is normal left ventricular wall thickness. The left ventricular systolic function is mild to moderately decreased. The visually estimated ejection fraction is between 35-40%. - Normal right ventricular cavity size. There is mild to moderately decreased right ventricular systolic function. - There is mild dilatation of the ascending aorta measuring 3.60 cm. - Known mitral valve repair- ring valvuloplasty. Findings Procedure Information Contrast agent, definity, is being given per protocol without apparent complications. Left Ventricle Normal left ventricular cavity size. There is normal left ventricular wall thickness. The left ventricular systolic function is mild to moderately decreased. The visually estimated ejection fraction is between 35-40%. There is mild global hypokinesis. There is paradoxical septal motion consistent with post-operative status. Diastolic function is indeterminate on the basis of available data. Right Ventricle Normal right ventricular cavity size. There is mild to moderately decreased right ventricular systolic function. Atria The left atrium is mildly dilated. The right atrium is normal in size. Aortic Valve Normal aortic valve structure and function. There is no aortic valve stenosis. There is no aortic valve regurgitation. Mitral Valve There is no mitral valve regurgitation. There is no mitral valve stenosis. Known mitral valve repair- ring valvuloplasty. Pulmonic Valve The pulmonic valve is likely normal. There is trace pulmonic valve regurgitation. Tricuspid Valve Normal tricuspid valve structure. There is trace tricuspid valve regurgitation. Normal right atrial pressure. There is no evidence of pulmonary hypertension. Great Vessels There is mild dilatation of the ascending aorta measuring 3.60 cm. The visualized portions of the pulmonary artery and branches are normal. Venous The inferior vena cava is normal in size and collapses greater than 50% with inspiration. Pericardium/Pleural There is no evidence of pericardial effusion. Prior Study Comparison Changes noted compared to prior study dated: 07/14/2023. s/p mitral valve repair. EF 35 to 40%. Measurements 2D Linear Measurements IVSd: 1.04 0.6-0.9/0.6-1.0 cm LVIDd: 4.79 3.9-5.3/4.2-5.9 cm LVIDd Index: 2.48 2.4-3.2/2.2-3.1 cm/m2 LVIDs: 3.77 2.0-3.6 cm LVPWd: 0.76 0.7-1.1 cm LA Diam: 4.00 2.7-3.8/3.0-4.0 cm LAIDs Index: 2.07 1.5-2.3 cm/m2 LV Mass: 183.07 67-162/88-224 g LV Mass Index: 94.85 43-95/49-115 g/m2 LVOT Diam: 2.30 3.0+(-)1.3 cm 2D Systolic Function EF 4C: 39.90 >55% EF 2C: 37.50 >55% EF BiP: 36.50 >55% Mitral Valve MV VTI: 0.39 MV Pk Oli: 1.77 MV Mn Oli: 1.18 MV Pk Grad: 13.00 MV Mn Grad: 6.00 MV Pk E: 0.92 MV PK A: 1.56 MV Decel Time: 146.00 E/A: 0.60 E'Lateral: 7.07 E'Medial: 5.77 E/E' Med: 15.90 E/E' Lat: 13.00 PHT: 43.00 MVA PHT: 5.12 MVA Continuity: 2.20 Decel [place]: 6.28 Aortic Valve AoV Pk Oli: 1.39 AoV Mn Oli: 0.97 AoV VTI: 0.26 AoV Pk Grad: 8.00 Aov Mn Grad: 4.00 NAZIA Cont.VTI: 3.25 LVOT LVOT Pk Oli: 0.97 LVOT Mn Oli: 0.68 LVOT VTI: 0.21 LVOT Pk Grad: 4.00 LVOT Mn Grad: 2.00 LVOT Diam: 2.30 LVOT Area: 4.15 Diastolic Function MV Pk E: 0.92 MV Pk A: 1.56 E/A: 0.60 E'Medial: 5.77 E/E' Med: 15.90 E' Laterial: 7.07 E/E' Lat: 13.00 Right Ventricle TAPSE (mm): 6.08 TVS' Oli: 5.11 Tricuspid Valve TR Pk Oli: 2.00 TR Pk Grad: 16.00 RA Press: 3.00 RVSP: 19.00 Great Vessels Aorta Sinus of Valsalva: 3.73 2.0-3.5 cm Ao Asc: 3.60 2.1-3.4 cm Updated in Other Vendor System with Status of Final Nathaniel Napier MD electronically signed on 11/26/2023 2:26:40 PM with status of Final
== END ==
LOC: HO.CARD 07:43
PROVIDERS: PCP Internal Medicine; Visit Provider Nurse Practitioner
DX: Z98.890 Other specified postprocedural states (principal)
CPT/HCPCS: 93306; Q9957

== ENCOUNTER → 2023-11-24 07:49 | Outpatient (BNV) | payer BC, SELFPAY | PROVIDERS: PCP Internal Medicine; Visit Provider Internal Medicine Cardiovascular Disease | DX: I51.89 Other ill-defined heart diseases (principal); Z95.4 Presence of other heart-valve replacement | CPT/HCPCS: 93306 ==

== ENCOUNTER → 2023-12-18 09:47 | Outpatient (BNVA) | payer SELFPAY | PROVIDERS: PCP Internal Medicine; Visit Provider Internal Medicine ==

== ENCOUNTER 2023-12-20 10:14 | Outpatient (AMB) | payer BC, SELFPAY ==
[2023-12-20 10:17] VITALS: BP 138/68; PULSE 85; BMI 26.9
--- NOTE | 2023-12-20 10:17 | A.OFFVIS_ITS ---
Vital Signs 12/20/23 10:17 Height 5 ft 8 in Weight 176 lb 12.972 oz BMI 26.9 BP 138/68 Blood Pressure Location Lt brachial Position Sitting Pulse 85 Intake Visit Reasons: Follow up/Clearance to return to work [employer] Required: No Accompanied by: Self / Same As Patient Allergies No Known Allergies Allergy (Mild, Verified 10/07/23 05:40) NOT APPLICABLE Medication List - Last Reconciled 12/20/23 by Rony Hopkins MD aspirin 81 mg PO DAILY clobetasol 0.05% grams topical BID metoprolol succinate ER 50 mg PO DAILY HPI Comments Details: Piyush returns for follow-up. In the past, he was seen regarding severe mitral regurgitation. Then referred to Cardiac surgery and he underwent mitral valve repair. Overall, he states he feels great. No symptoms whatsoever including angina or shortness of breath or anything cardiac related. [facility] Medical History (Updated 12/20/23 @ 10:39 by Rony Hopkins MD) Decreased cardiac ejection fraction Essential hypertension Heart murmur Surgical History S/P mitral valve repair H/O colonoscopy Hx of hand surgery Family History Father No problems noted. Mother No problems noted. Social History Alcohol intake: former Year quit: 1999 Patient Tobacco Use Status: Former Tobacco user Tobacco use type: Cigarette Review of Systems Const Denies chills, Denies fatigue, Denies fever(s), Denies weight gain and Denies weight loss ENT Denies dizziness Card Denies chest pain, Denies leg edema, Denies lightheadedness, Denies palpitations, Denies dyspnea on exertion, Denies orthopnea and Denies other Resp Denies cough and Denies dyspnea on exertion GI Denies hematochezia and Denies change in stool character Musc Denies abnormal gait, Denies muscle weakness, Denies numbness, Denies radiating pain into limb and Denies tingling Neuro Denies abnormal gait, Denies dizziness, Denies numbness and Denies tingling Endo Denies fatigue and Denies palpitations Physical Exam Vital Signs: Last Vital Signs Pulse 85 12/20/23 10:17 BP 138/68 12/20/23 10:17 BMI result Body Mass Index 26.9 Const General: comfortable and no acute distress Orientation/consciousness: patient oriented x3 HEENT Other: Unremarkable Head: Yes normal to inspection Neck Neck: Yes normal visual inspection Chest Chest palpation & inspection: normal inspection of the chest Resp Auscultation: clear to auscultation bilaterally Cardio Palpation: normal PMI Heart sounds: S1 normal heart sound present, S2 normal heart sound present, no gallops, no murmurs and no rubs GI Palpation (GI): Soft to palpation Back/Spine/Pelvis Other: unremarkable Skin General skin exam: no rashes or lesions noted Neuro General: patient oriented x3 Extrem General: Yes normal to inspection Psych Mental Status: mental status grossly normal Office Procedures EKG Details: EKG with underlying sinus rhythm at 85/Min; left anterior fascicular block; [place] [id number], Complete Assessment & Plan Assessment & Plan (1) S/P mitral valve repair: Code(s): Z98.890 - Other specified postprocedural states Category: Surgical Plan: Status post mitral valve repair with annuloplasty ring, 10/2023. In fact endocarditis prophylaxis per protocol. He can take low-dose aspirin. (2) Cardiomyopathy: Code(s): I42.9 - Cardiomyopathy, unspecified Category: Medical Plan: Postop echocardiogram with reduced LVEF of 35-40%. We will recheck in a few months' time. Clinically, no symptoms or signs of congestive heart failure. (3) Atherosclerotic cardiovascular disease: Code(s): I25.10 - Atherosclerotic heart disease of [place] coronary artery without angina pectoris Category: Medical Plan: Cardiac catheterization shows mid circumflex 50% stenosis with normal IFR, but otherwise normal coronaries. Take statins. Plan He would like to return to work without restrictions. Advised him to still avoid any strenuous physical activity and seek emergency help if any concerns. He states he will avoid exerting too much and asked for help as needed. He will contact us with concerns. Orders: Orders CA echo transthoracic complete 3 Months Z98.890 - Other specified postprocedural states Medications: New atorvastatin 40 mg PO QPM 90 tabs 3RF Coding Level of Care Code Est Pt Level 4 (32453) Diagnoses S/P mitral valve repair Z98.890 Cardiomyopathy I42.9 Atherosclerotic cardiovascular disease I25.10 CPT Codes EKG - CPT: 97998-[id number], Complete ([id number])
== END 2023-12-20 10:49 | disposition home or self-care (01) ==
PROVIDERS: PCP Internal Medicine; Visit Provider Internal Medicine
DX: Z98.890 Other specified postprocedural states (principal); I42.9 Cardiomyopathy, unspecified; I25.10 Atherosclerotic heart disease of native coronary artery without angina pectoris
CPT/HCPCS: 93010; 99214

== ENCOUNTER → 2023-12-20 10:14 | Outpatient (BNVA) | payer SELFPAY | PROVIDERS: PCP Internal Medicine; Visit Provider Internal Medicine | DX: I42.9 Cardiomyopathy, unspecified (principal); I25.10 Atherosclerotic heart disease of native coronary artery without angina pectoris; Z98.890 Other specified postprocedural states | CPT/HCPCS: 93005 ==

== ENCOUNTER 2023-12-27 07:00 | Outpatient (RCR) | payer BC, SELFPAY | END 2023-12-29 08:11 | disposition home or self-care (01) | LOC: HO.CR 07:00 | PROVIDERS: PCP Internal Medicine; Visit Provider Nurse Practitioner | DX: Z98.890 Other specified postprocedural states (principal) | CPT/HCPCS: 93798 ==

== ENCOUNTER → 2024-03-18 08:48 | Outpatient (REF) | payer BC, SELFPAY ==
--- NOTE | 2024-03-18 08:51 | CA_ITS ---
Transthoracic Echocardiogram Patient (Last, First, Middle): Clay Mcallister M Gender: Male Date of : 1955 Age: 68 Procedure Date: 03/18/2024 Procedure Type: Transthoracic Echocardiogram Location: OP Height: 175.26 cm Weight: 75.3 kg BSA: 1.91 m2 Heart Rate: bpm BP: 118 / 66 mmHg Inspector Weights And Measures: Referring MD: Rony Hopkins MD Symptoms: Z98.890 - Other specified postprocedural states s/p MV Repaired Study Quality: Good ECG Rhythm: Sinus Conclusions: - The left ventricular systolic function is mildly decreased. The visually estimated ejection fraction is between 45-50%. - s/p mitral valve repair with normal valvular function. Findings Left Ventricle Normal left ventricular cavity size. There is mildly increased left ventricular wall thickness. The left ventricular systolic function is mildly decreased. The visually estimated ejection fraction is between 45-50%. There is paradoxical septal motion consistent with post-operative status. Evidence suggests grade I (mild) diastolic dysfunction. Right Ventricle Normal right ventricular cavity size. There is mildly decreased right ventricular systolic function. Atria Both atria are normal in size. Aortic Valve There is a normal trileaflet aortic valve. There is no aortic valve stenosis. There is no aortic valve regurgitation. Mitral Valve There is trace mitral valve regurgitation. There is no mitral valve stenosis. s/p mitral valve repair. Pulmonic Valve There is trace pulmonic valve regurgitation. Tricuspid Valve Normal tricuspid valve structure. There is trace tricuspid valve regurgitation. There is no evidence of pulmonary hypertension. Great Vessels The asc aorta is normal in size. Venous The inferior vena cava is normal in size and collapses greater than 50% with inspiration. Pericardium/Pleural There is no evidence of pericardial effusion. Prior Study Comparison Changes noted compared to prior study dated: 11/24/2023. LVEF higher than previously reported. Measurements 2D Linear Measurements IVSd: 1.09 0.6-0.9/0.6-1.0 cm LVIDd: 4.12 3.9-5.3/4.2-5.9 cm LVIDd Index: 2.16 2.4-3.2/2.2-3.1 cm/m2 LVIDs: 3.07 2.0-3.6 cm LVPWd: 1.15 0.7-1.1 cm Ao Root: 3.40 2.1-3.5 cm LA Diam: 3.70 2.7-3.8/3.0-4.0 cm LAIDs Index: 1.94 1.5-2.3 cm/m2 LV Mass: 194.82 67-162/88-224 g LV Mass Index: 102.00 43-95/49-115 g/m2 LVOT Diam: 2.30 3.0+(-)1.3 cm 2D Systolic Function EF 4C: 54.50 >55% EF 2C: 47.10 >55% EF BiP: 50.40 >55% Mitral Valve MV VTI: 0.32 MV Pk Oli: 1.35 MV Mn Oli: 0.77 MV Pk Grad: 7.00 MV Mn Grad: 3.00 MV Pk E: 0.95 MV PK A: 1.42 MV Decel Time: 189.00 E/A: 0.70 E'Lateral: 7.94 E'Medial: 5.66 E/E' Med: 16.70 E/E' Lat: 11.90 PHT: 55.00 MVA PHT: 4.00 MVA Continuity: 2.27 Decel [place]: 5.00 Aortic Valve AoV Pk Oli: 1.10 AoV Mn Oli: 0.74 AoV VTI: 0.23 AoV Pk Grad: 5.00 Aov Mn Grad: 3.00 NAZIA Cont.VTI: 3.25 LVOT LVOT Pk Oli: 0.92 LVOT Mn Oli: 0.63 LVOT VTI: 0.18 LVOT Pk Grad: 3.00 LVOT Mn Grad: 2.00 LVOT Diam: 2.30 LVOT Area: 4.15 Diastolic Function MV Pk E: 0.95 MV Pk A: 1.42 E/A: 0.70 E'Medial: 5.66 E/E' Med: 16.70 E' Laterial: 7.94 E/E' Lat: 11.90 Right Ventricle TAPSE (mm): 14.00 TVS' Oli: 8.00 Tricuspid Valve TR Pk Oli: 1.93 TR Pk Grad: 15.00 RA Press: 3.00 RVSP: 18.00 Great Vessels Aorta Ao Root-2D: 3.40 2.0-3.7 cm Ao Asc: 3.30 2.1-3.4 cm Pulmonary Valve PV Pk Oli: 1.19 Peak PV Grad: 6.00 Updated in Other Vendor System with Status of Final Rony Hopkins MD electronically signed on 03/19/2024 4:50:02 PM with status of Final
--- OUTSIDE RECORDS SUMMARY | 2024-03-18 09:14 | XMS_ITS | Patient Health Record ---
Author Organization Jem Moctezuma MD Address [address] [place], [place] [id number] Care Team Providers Care Mechatronics Technologist Name Role Phone Jem Moctezuma Primary Care Provider ALLERGIES No Known Allergies RESULTS Component Value Reference Range Notes Complete Blood Count Auto Di ff Reviewed date:07/31/2023 12:57:06 PM Interpretation: Performing Lab:[facility], [address] [place] [phone] Notes/Report: White Blood Count 6.5 4.8-10.8 X10*3/uL [...] NRBC Abs Auto 0.000 0.0-0.012 X10*3/uL Comprehensive [place]. Panel Fa st Reviewed date:07/31/2023 05:17:57 PM Interpretation: Performing Lab:[facility], [address] [place] [phone] Notes/Report: Sodium 144 135-145 mmol/L Potassium 4.3 3.3-5.1 mmol/L Chloride 108 96-108 mmol/L Carbon Dioxide 26 22-29 mmol/L Anion Gap 14 12-20 Blood Urea Nitrogen 17 9-16 mg/dL Creatinine 0.96 0.5-1.4 mg/dL Estimated Glomerular Filt Rate > 60 NOTE: For -Portuguese individuals, multiply the result by 1.210. Chronic [...] Panel Reviewed date:07/31/2023 12:44:20 PM Interpretation: Performing Lab:[address] [address] Notes/Report: Triglycerides 54 <150 mg/dL Desirable Triglyceride: [...] disease. PSA,Total (Free>4and<10) Reviewed date:08/10/2023 02:46:51 PM Interpretation:[facility] 08/09 Performing Lab:[address] [address] Notes/Report: PSA,Total (Free>4and<10) 1.72 0.00-4.00 ng/mL A [...] t Reviewed date:07/31/2023 05:18:40 PM Interpretation: Performing Lab:[address] [address] Notes/Report: Urine, Clean Catch Color Urine Yellow Appearance Urine Clear PH 6.0 5.0-9.0 Glucose Urine UA Negative Negative mg/dL Urine Blood Negative Negative Specific [place] - Urine 1.020 1.005-1.025 Urine Protein Negative [...] Notes/Report: Negative Occult Blood, Stool, Guaiac Neg Complete Blood Count Auto Di ff Reviewed date:10/08/2023 04:53:56 PM Interpretation: Performing Lab:[facility], [address] [place] [phone] Notes/Report: White Blood Count 6.1 4.8-10.8 X10*3/uL Red Blood Count 4.66 4.60-5.80 X10*6/uL Hemoglobin 13.5 14.0-18.0 g/dl Hematocrit 40.6 42.0-52.0 % Mean Corpuscular Volume 87.1 80.0-98.0 fL Mean Corpuscular Hemoglobin 29.0 27.0-33.0 pg Mean Corpuscular HGB Conc 33.3 31.0-36.0 g/dl Red Cell Distribution Width 13.8 11.0-16.0 % Platelet Count 180 160-400 X10*3/uL Mean Platelet Volume 8.7 9.4-12.4 fL Neutrophils Percent Auto 61.0 45-73 % Imm Gran Pct Auto 0.7 0.0-0.4 % Lymphocytes Percent Auto 20.8 20-40 % Monocytes Percent Auto 13.7 2-11 % Eosinophils Percent Auto 3.3 0-4 % Basophils Percent Auto 0.5 0-2 % NRBC Pct Auto 0.0 0.0-0.2 /100WBC Neutrophils Absolute Auto 3.7 2.0-8.3 x10*3/u L Imm Gran Abs Auto 0.04 0.00-0.03 X10*3/uL Lymphocytes Absolute Auto 1.3 1.2-4.9 X10*3/u L Monocytes Absolute Auto 0.8 0.1-1.2 X10*3/uL Eosinophils Absolute Auto 0.2 0.0-0.4 X10*3/u L Basophils Absolute Auto 0.0 0.0-0.2 X10*3/uL NRBC Abs Auto 0.000 0.0-0.012 X10*3/uL Prothrombin Time INR Reviewed date:10/08/2023 04:52:58 PM Interpretation: Performing Lab:[facility], [address] [place] [phone] Notes/Report: Prothrombin Time 11.2 11.1-13.3 SEC INTERNATIONAL NORM RATIO 0.9 0.9-1.1 INTERNATIONAL NORMALIZED RATIO (INR) REFERENCE RANGES Reference Range For patients not on anticoagulant therapy: 0.9 - 1.1 INR ranges for oral anticoagulant therapy: For prevention and treatment of venous thrombosis and pulmonary embolism: 2.0 - 3.0 For acute myocardial infarction with aspirin therapy: 2.0 - 3.0 For acute myocardial infarction without aspirin therapy: 3.0 - 4.0 For patients with mechanical prosthetic heart valves: 2.5 - 3.5 Comprehensive Met. Panel Reviewed date:10/08/2023 04:53:29 PM Interpretation: Performing Lab:[facility], [address] [place] [phone] Notes/Report: Sodium 142 135-145 mmol/L Potassium 4.7 3.3-5.1 mmol/L Slight Hemoly sis Chloride 110 96-108 mmol/L Carbon Dioxide 26 22-29 mmol/L Anion Gap 11 12-20 Blood Urea Nitrogen 13 9-16 mg/dL Creatinine 0.87 0.5-1.4 mg/dL Creatinine Clr Calc Pharmacy 78.6 eGFR (calculated from the MDRD study equation) and eCrCl (calculated from the Cockcroft-Gault equation) are based on different parameters and may not yield comparable results. If eCrCl result is absurd, please check patient's height/weight. Estimated Glomerular Filt Rate > 60 NOTE: For -Portuguese individuals, multiply the result by 1.210. Chronic Kidney Disease: Estimated GFR < 60 mL/min/1.73m2 Severe Kidney Disease: Estimated GFR < 15 mL/min/1.73m2 Glucose Random 102 60-115 mg/dL Calcium 9.0 8.4-10.2 mg/dL Bilirubin Total 0.5 0.0-1.0 mg/dL Aspartate Amino Transferase 22 5-37 U/L Slight Hemolysis Alanine Aminotransferase 15 0-40 U/L Total Protein 6.5 6.5-8.0 g/dL Albumin Level 3.8 3.5-5.0 g/dL Alkaline Phosphatase 47 39-117 U/L Lipase Reviewed date:10/08/2023 04:52:19 PM Interpretation: Performing Lab:[address] [phone] Notes/Report: Lipase 59 8-78 U/L UA CC w/rflx Micro + Cult Reviewed date:10/09/2023 05:30:44 PM Interpretation: Performing Lab:[address] [address] Notes/Report: [id number] Urine, Clean Catch Color Urine Yellow Appearance Urine Clear PH 6.5 5.0-9.0 Glucose Urine UA Negative Negative mg/dL Urine Blood Negative Negative Specific [place] - Urine >= 1.030 1.005-1.025 Urine Protein Negative Neg-Trace mg/dL Urine Ketones Negative Negative mg/dL Nitrite Urine Negative Negative Leukocyte Esterase Urine Negative Negative CT chest w con Reviewed date:10/08/2023 04:51:38 PM Interpretation: Performing Lab: Notes/Report: [address] [place] [address] CT Scan Report Signed Patient: Clay Mcallister MR#: [id number] 4 : 1955 Acct:[id number] Age/Sex: 67 / M ADM Date: 10/07/23 Loc: HO.ED Attending Dr: Ordering Physician: Rosemarie Montes De Oca CNP Date of Service: 10/07/23 Procedure(s): CT chest w IV con Accession Number(s): [id number] cc: Rosemarie Montes De Oca CNP; Jem Moctezuma MD EXAM: Contrast-enhanced CT scan of the chest, abdomen, and pelvis. INDICATION: 6 foot fall onto handlebars COMPARISON: CT abdomen pelvis August 08, 2016 TECHNIQUE: Multidetector helical imaging of the chest, abdomen, and pelvis was obtained from the thoracic inlet through the pubic symphysis following administration of 85 cc of Omnipaque 350 IV contrast. Coronal and sagittal reformatted images that were obtained were also reviewed. This CT examination was performed using dose optimization techniques as appropriate, variously including the following: *Automated exposure control *Adjustment of mA and/or kV according to patient size (this includes techniques or standardized protocols for targeted exams where dose is matched to indication/reason for exam; i.e. extremities or head) *Use of iterative reconstruction technique DLP: 786 mGy-cm FINDINGS: CHEST: Central airways are patent. Lungs are well aerated. Mild emphysematous changes are present. There is no lobar consolidation. No pleural effusion or pneumothorax. There is some mild suspected right middle lobe atelectasis. Punctate calcified granuloma of the left lower lobe. No suspicious pulmonary nodules. The heart is normal in size. Coronary artery calcifications are present. There is no pericardial effusion. Normal caliber thoracic aorta. No gross mediastinal or hilar lymphadenopathy. No pathologically enlarged axillary lymph nodes. ABDOMEN/PELVIS: The liver is normal in size. The gallbladder is normal in appearance. There is mild fatty atrophy of the pancreas. The spleen and adrenal glands are unremarkable. Symmetrically enhancing kidneys without hydronephrosis. Normal caliber loops of small and large bowel. Mild colonic diverticulosis. Normal appendix. Normal caliber abdominal aorta demonstrating only minimal atherosclerotic disease. No retroperitoneal lymphadenopathy. There is diffuse subcutaneous stranding of the midline ventral abdominal wall, most consistent with hematoma. There is no well organized fluid collection present. The bladder is normal in appearance. The prostate gland is at the upper limits of normal in size. Small fat-containing inguinal hernias are present. No inguinal lymphadenopathy. No gross free pelvic fluid. OSSEOUS STRUCTURES Moderate diffuse degenerative changes of the spine. Stable subcentimeter sclerotic density within the L5 vertebral body, statistically a bone island. CT/CT chest w IV con IMPRESSION: 1. Diffuse subcutaneous stranding of the midline ventral abdominal wall, most consistent with hematoma. There is no well organized fluid collection present. 2. Mild emphysema. 3. Mild colonic diverticulosis. Dictated By: Toñito Gomez MD Signed By: <Electronically signed by Toñito Gomez MD in OV> 10/07/23921 DD/ 0 TD/TT: [employer] Designer: PD CT abdomen pelvis w con Reviewed date:10/08/2023 04:52:46 PM Interpretation: Performing Lab: Notes/Report: [address] [address] [address] Scan Report Signed Patient: Clay Mcallister MR#: [id number] 4 : 1955 Acct:[id number] Age/Sex: 67 / M ADM Date: 10/07/23 Loc: HO.ED Attending Dr: Ordering Physician: Rosemarie Montes De Oca CNP Date of Service: 10/07/23 Procedure(s): CT abdomen pelvis w IV con Accession Number(s): [id number] cc: Rosemarie Montes De Oca CNP; Jem Moctezuma MD EXAM: Contrast-enhanced CT scan of the chest, abdomen, and pelvis. INDICATION: 6 foot fall onto handlebars COMPARISON: CT abdomen pelvis August 08, 2016 TECHNIQUE: Multidetector helical imaging of the chest, abdomen, and pelvis was obtained from the thoracic inlet through the pubic symphysis following administration of 85 cc of Omnipaque 350 IV contrast. Coronal and sagittal reformatted images that were obtained were also reviewed. This CT examination was performed using dose optimization techniques as appropriate, variously including the following: *Automated exposure control *Adjustment of mA and/or kV according to patient size (this includes techniques or standardized protocols for targeted exams where dose is matched to indication/reason for exam; i.e. extremities or head) *Use of iterative reconstruction technique DLP: 786 mGy-cm FINDINGS: CHEST: Central airways are patent. Lungs are well aerated. Mild emphysematous changes are present. There is no lobar consolidation. No pleural effusion or pneumothorax. There is some mild suspected right middle lobe atelectasis. Punctate calcified granuloma of the left lower lobe. No suspicious pulmonary nodules. The heart is normal in size. Coronary artery calcifications are present. There is no pericardial effusion. Normal caliber thoracic aorta. No gross mediastinal or hilar lymphadenopathy. No pathologically enlarged axillary lymph nodes. ABDOMEN/PELVIS: The liver is normal in size. The gallbladder is normal in appearance. There is mild fatty atrophy of the pancreas. The spleen and adrenal glands are unremarkable. Symmetrically enhancing kidneys without hydronephrosis. Normal caliber loops of small and large bowel. Mild colonic diverticulosis. Normal appendix. Normal caliber abdominal aorta demonstrating only minimal atherosclerotic disease. No retroperitoneal lymphadenopathy. There is diffuse subcutaneous stranding of the midline ventral abdominal wall, most consistent with hematoma. There is no well organized fluid collection present. The bladder is normal in appearance. The prostate gland is at the upper limits of normal in size. Small fat-containing inguinal hernias are present. No inguinal lymphadenopathy. No gross free pelvic fluid. OSSEOUS STRUCTURES Moderate diffuse degenerative changes of the spine. Stable subcentimeter sclerotic density within the L5 vertebral body, statistically a bone island. CT/CT abdomen pelvis w IV con IMPRESSION: 1. Diffuse subcutaneous stranding of the midline ventral abdominal wall, most consistent with hematoma. There is no well organized fluid collection present. 2. Mild emphysema. 3. Mild colonic diverticulosis. Dictated By: Toñito Gomez MD Signed By: <Electronically signed by Toñito Gomez MD in [place]> 10/07/23921 DD/ 9 TD/TT: [employer] Designer: PD REASON FOR REFERRAL No Information MEDICATIONS Medication SIG (Take, Route, Frequency, Duration) Notes Start Date End Date Status Metoprolol Succinate ER 50 MG TAKE 1 TABLET BY MOUTH EVERY DAY FOR 30 DAYS Active amLODIPine Besylate 2.5 MG 1 tablet Orally Once a day Active Triamcinolone Acetonide 0.5 % 1 application to affected area Externally Twice a day for 30 days 03/20/2012 Not-Taking IMMUNIZATIONS Vaccine Route Administration Date Status Comme nts Flu Vaccine IM Intramuscular 01/18/2011 Administered Flu Vaccine Unknown 12/18/2011 Administered Flu Vaccine IM Intramuscular 01/31/2013 Administered Flu Vaccine Unknown 01/20/2014 Administered Shingles IM Intramuscular 11/04/2014 Administered Flu Vaccine Unknown 12/31/2014 Administered given at wo rk Flu Vaccine IM Intramuscular 12/04/2015 Administered pt wa s vaccinced at [facility] in [place]. PPSV23 (Pnemovax) IM Intramuscular 07/17/2017 Administered TDaP IM Intramuscular 07/21/2017 Administered pt was given the vaccine at [facility] Tetanus Unknown 07/21/2017 Administered Fluarix Quadrivalent Unknown 12/26/2017 Administered was given at work. Prevnar 13 IM Intramuscular 07/27/2018 Administered Shingrix IM Intramuscular 10/15/2018 Administered pt was given the vaccine at [facility] in [place]. Shingrix IM Intramuscular 07/29/2018 Administered pt was given the vaccine at [facility]. Fluarix Quadrivalent Unknown 12/29/2018 Administered [facility] SARS-COV-2 Moderna Unknown 06/24/2020 Administered SARS-COV-2 Moderna Unknown 07/22/2020 Administered Influenza High Dose IM Intramuscular 12/30/2021 Administer ed Influenza High Dose Unknown 12/30/[address] [facility] Influenza High Dose IM Intramuscular 11/20/2023 Administer ed PPSV23 (Pnemovax) Unknown 07/01/2016 Refused SOCIAL HISTORY [...] Notes Problem Essential hypertension (I10) Active confirmed 07989549 Problem Prediabetes (R73.09) Active confirmed 4038316 Problem Alcohol abuse (F10.10) Active confirmed Alcohol abuse (59439226) Problem Neutropenia, unspecified type (D70.9) Active confirmed 278825886 Problem Moderate mitral regurgitation (I34.0) Active confirmed 04999438 VITAL SIGNS Blood pressure diastolic 78 mm Hg 02/02/2024 Height 67 in 02/02/2024 Blood pressure systolic 130 mm Hg 02/02/2024 Weight 178 lbs 02/02/2024 BMI 27.88 kg/m2 02/02/2024 Encounters Encounter Location Date Provider Diagnosis Jem Moctezuma MD [address] [place] [id number] 08/10/2023 Jem Moctezuma Essential hypertension I10 ; Encounter for general adult medical examination without abnormal findings Z00.00 ; Moderate mitral regurgitation I34.0 ; Prediabetes R73.09 ; Neutropenia, unspecified type D70.9 ; Colon cancer screening Z12.11 and Depression screening Z13.31 Jem Moctezuma MD [address] [place] [id number] 07/31/2023 Jem Moctezuma Blood tests for routine general physical examination Z00.00 ; Essential hypertension I10 and Neutropenia, unspecified type D70.9 Jem Moctezuma MD [address] [place] [id number] 11/20/2023 Jem Moctezuma Encounter for immunization Z23 Jem Moctezuma MD [address] [place] [id number] 07/07/2023 Jem Moctezuma Prediabetes R73.09 and Moderate mitral regurgitation I34.0 Jem Moctezuma MD [address] [place] [id number] 02/02/2024 Jem Moctezuma History of mitral valve repair Z98.890 and Moderate mitral regurgitation I34.0 Jem Moctezuma MD [address] [place] [id number] 10/09/2023 Jem Moctezuma MD [address] [place] [address] [id number] 04/06/2023 Jem Moctezuma MD [address] [place] [address] [id number] 06/29/2023 Jem Moctezuma MD [address] [place] [id number] 09/07/2023 Jem Moctezuma MD [address] [place] [id number] 10/05/2023 Jem Moctezuma MD [address] [place] [id number] 10/09/2023 Jem Moctezuma ASSESSMENTS Encounter Date Diagnosis Assessment Notes Treatment Notes Treatment Clinical Notes 08/10/2023 Encounter for general adult medical examination without abnormal findings (ICD-10 - Z00.00) Labs reviewed and discussed with patient 08/10/2023 Essential hypertension (ICD-10 - I10) doing well on meds, will continue current regiment 07/31/2023 Essential hypertension (ICD-10 - I10) 07/31/2023 Blood tests for routine general physical examination (ICD-10 - Z00.00) 11/20/2023 Encounter for immunization (ICD-10 - Z23) 07/07/2023 Prediabetes (ICD-10 - R73.09) doing well, no need for medication at this time 07/07/2023 Moderate mitral regurgitation (ICD-10 - I34.0) going valve replacement to see senior automation engineer to determine if he needs 02/02/2024 Moderate mitral regurgitation (ICD-10 - I34.0) 02/02/2024 History of mitral valve repair (ICD-10 - Z98.890) need discharge summary from [facility]. DOING GREAT AFTER SURGERY.needs ab for procedures/ DISCHARGE SUMMARY REQUESTED FROM [facility], Total time spent on the date of the encounter is 35 minutes including both face to face time spent and time spent reviewing documentation, and counseling the patient. 08/10/2023 Moderate mitral regurgitation (ICD-10 - I34.0) going for cardiac cath 07/31/2023 Neutropenia, unspecified type (ICD-10 - D70.9) 08/10/2023 Prediabetes (ICD-10 - R73.09) stable, no [...] ECHO 09/04/2021 Next Appt Details Provider Name:Jem Murillo ier, 08/06/2024 07:30:00 AM, [address] [place] [address], [address], [place], [place], [phone], Provider Name:Jem Murillo ier, 08/12/2024 03:30:00 PM, [address] [place] [address], [address], [place], [place], [phone], Insurance Providers Payer Name Payer Address Payer Phone Subscriber Number Group Number Insured Name Patient Relationship to Insured Coverage Start Date Coverage End Date [employer] [address] [place], [place] [phone] [id number] Clay Mcallister Self - patient is the insured MEDICAL (GENERAL) HISTORY Medical History History ICD Code colonoscopy 02/19/2010 due in 10 years - Dr. Barroso colonoscopy done 12/01, repeat 5 years
--- OUTSIDE RECORDS SUMMARY | 2024-03-18 09:14 | XMS_ITS | Patient Health Record ---
Author Organization [facility] Address [address] [place] [address] Care Team Providers Care Caster Investment Casting Name Role Phone Jem Moctezuma MD Primary Care Provider Clive Hill Unavailable [phone] ALLERGIES No Known Allergies REASON FOR REFERRAL [...] history of colon cancer (Z80.0) Active confirmed [id number] Problem Encounter for screening for malignant neoplasm of colon (Z12.11) Active confirmed 224568338 Problem Pre-procedural examination (Z01.818) Active confirmed 348639791070509 Problem Diverticulosis of colon (K57.30) Active confirmed Diverticulosi s of colon (514867132) PLAN OF TREATMENT Pending Test Test Name Order Date Pathology 11/18/2020 Future Test Test Name Order Date COLONOSCOPY 09/30/2020 Insurance Providers Payer Name Payer Address Payer Phone Subscriber Number Group Number Insured Name Patient Relationship to Insured Coverage Start Date Coverage End Date [facility] [address] [facility] [phone] [id number] SLY ANNE Self - patient is the insured MEDICAL (GENERAL) HISTORY Medical History History ICD Code Neg screening colonoscopy in 02/2010 Denies OR,DM,CVA,Lung disease,renal dise ase Surgical History Surgery Date(Month/Year) Left thumb
--- OUTSIDE RECORDS SUMMARY | 2024-03-18 09:14 | XMS_ITS ---
Author Organization Jem Moctezuma MD Address [address] [place] [phone] Care Team Providers Care Staff Development Coordinator Name Role Phone Jem Moctezuma Primary Care Provider REASON FOR VISIT Flu vac MEDICATIONS Medication SIG (Take, Route, Frequency, Duration) Notes Start Date End Date Status Triamcinolone Acetonide 0.5 % 1 application to affected area Externally Twice a day for 30 days 03/20/2012 Not-Taking amLODIPine Besylate 2.5 MG 1 tablet Orally Once a day Active Metoprolol Succinate ER 50 MG TAKE 1 TABLET BY MOUTH EVERY DAY FOR 30 DAYS Active IMMUNIZATIONS Vaccine Route Administration Date Status Comme nts Influenza High Dose IM Intramuscular 11/20/2023 Administer ed Encounters Encounter Location Date Provider Diagnosis Jem Moctezuma MD [address] [place] [id number] 11/20/2023 Jem Moctezuma Encounter for immunization Z23 ASSESSMENTS Encounter Date Diagnosis Assessment Notes Treatment Notes Treatment Clinical Notes 11/20/2023 Encounter for immunization (ICD-10 - Z23) PLAN OF TREATMENT Next Appt Details Provider Name:Jem schwartz, 08/06/2024 07:30:00 AM, [address] [facility], [address] [facility], [place], [place], [phone], Provider Name:Jem schwartz, 08/12/2024 03:30:00 PM, [address] [place] [address], [address], [place], [place], [phone],
--- OUTSIDE RECORDS SUMMARY | 2024-03-18 09:14 | XMS_ITS ---
Author Organization Jem Moctezuma MD Address [address] [place] [phone] Care Team Providers Care Single Needle Tufting Machine Operator Name Role Phone Jem Moctezuma Primary Care Provider ALLERGIES No Known Allergies REASON FOR VISIT 6 MO F/U, mitral valve repair October MEDICATIONS Medication SIG (Take, Route, Frequency, Duration) Notes Start Date End Date Status Metoprolol Succinate ER 50 MG TAKE 1 TABLET BY MOUTH EVERY DAY FOR 30 DAYS Active amLODIPine Besylate 2.5 MG 1 tablet Orally Once a day Active Triamcinolone Acetonide 0.5 % 1 application to affected area Externally Twice a day for 30 days 03/20/2012 Not-Taking VITAL SIGNS BMI 27.88 kg/m2 02/02/2024 Blood pressure systolic 130 mm Hg 02/02/20 24 Blood pressure diastolic 78 mm Hg 024 Height 67 in 02/02/2024 Weight 178 lbs 02/02/2024 Encounters Encounter Location Date Provider Diagnosis Jem Moctezuma MD [address] [place] [phone] 02/02/2024 Jem Moctezuma History of mitral valve repair Z98.890 and Moderate mitral regurgitation I34.0 ASSESSMENTS Encounter Date Diagnosis Assessment Notes Treatment Notes Treatment Clinical Notes 02/02/2024 History of mitral valve repair (ICD-10 - Z98.890) need discharge summary from [facility]. DOING GREAT AFTER SURGERY.needs ab for procedures/ DISCHARGE SUMMARY REQUESTED FROM [facility], Total time spent on the date of the encounter is 35 minutes including both face to face time spent and time spent reviewing documentation, and counseling the patient. 02/02/2024 Moderate mitral regurgitation (ICD-10 - I34.0) PLAN OF TREATMENT Treatment Notes Assessment Notes History of mitral valve repair need disc harge summary from [facility]. DOING GREAT AFTER SURGERY.needs ab for procedures/ DISCHARGE SUMMARY REQUESTED FROM [facility], Total time spent on the date of the encounter is 35 minutes including both face to face time spent and time spent reviewing documentation, and counseling the patient. Next Appt Details Provider Name:Jem schwartz, 08/06/2024 07:30:00 AM, [address] [place] [address], [address], [place], [phone], Provider Name:Jem schwartz, 08/12/2024 03:30:00 PM, [address] [facility], [address], [place], [phone], Progress Notes * Examination Category Sub-Category Detail Notes General Examination GENERAL APPEARANCE: alert, w ell hydrated, in no distress HEART: no murmurs, rubs, ga llops , regular rate and rhythm LUNGS: no wheezes, rales, r honchi , good air movement , clear to auscultation bilaterally SKIN: good turgor
--- OUTSIDE RECORDS SUMMARY | 2024-03-18 09:14 | XMS_ITS ---
Author Organization Jem Moctezuma MD Address [address] [facility] [address] [place] [phone] Care Team Providers Care Door Frame Assembler Machine Name Role Phone Jem Moctezuma Primary Care Provider [phone] ALLERGIES No Known Allergies REASON FOR VISIT CHECK LUMP ON ABDOMEN Encounters Encounter Location Date Provider Diagnosis Jem Moctezuma MD [address] [facility] [address] [place] [phone] 10/09/2023 Jem Moctezuma PLAN OF TREATMENT Next Appt Details Provider Name:Jem schwartz, 08/06/2024 07:30:00 AM, [address] [place] [address], [place] [address], [place], [place], [phone], Provider Name:Jem schwartz, 08/12/2024 03:30:00 PM, [address] [place] [address], [place] [address], [place], [place], [phone],
== END ==
LOC: HO.CARD 08:48
PROVIDERS: PCP Internal Medicine; Visit Provider Internal Medicine
DX: Z98.890 Other specified postprocedural states (principal)
CPT/HCPCS: 93306

== ENCOUNTER → 2024-03-18 08:51 | Outpatient (BNV) | payer BC, SELFPAY | PROVIDERS: PCP Internal Medicine; Visit Provider Internal Medicine | DX: Z95.4 Presence of other heart-valve replacement (principal) | CPT/HCPCS: 93306 ==

== ENCOUNTER 2024-04-03 12:10 | Outpatient (AMB) | payer BC, SELFPAY ==
[2024-04-03 12:25] VITALS: BP 118/62; PULSE 78; BMI 25.8
--- NOTE | 2024-04-03 12:25 | A.OFFVIS_ITS ---
Vital Signs 04/03/24 12:25 Height 5 ft 8 in Weight 169 lb 12.095 oz BMI 25.8 BP 118/62 Blood Pressure Location Lt brachial Position Sitting Pulse 78 Pulse Source Pulse Oximeter Intake Visit Reasons: 3 mth s/p echo Allergies No Known Allergies Allergy (Mild, Verified 10/07/23 05:40) NOT APPLICABLE Medication List - Last Reconciled 04/03/24 by Rony Hopkins MD aspirin 81 mg PO DAILY atorvastatin 40 mg PO QPM metoprolol succinate ER 50 mg PO DAILY HPI Comments Details: Piyush returns for follow-up. In the past, he was seen regarding severe mitral regurgitation. Then referred to Cardiac surgery and he underwent mitral valve repair. He states overall, he feels great. Absolutely no symptoms whatsoever. Physically very active with no limitations. [facility] Medical History (Updated 12/20/23 @ 10:39 by Rony Hopkins MD) Decreased cardiac ejection fraction Essential hypertension Heart murmur Surgical History S/P mitral valve repair H/O colonoscopy Hx of hand surgery Family History Father No problems noted. Mother No problems noted. Social History Alcohol intake: former Year quit: 1999 Patient Tobacco Use Status: Former Tobacco user Tobacco use type: Cigarette Review of Systems Const Denies weakness ENT Denies dizziness Card Denies chest pain, Denies chest pain with activity, Denies syncope, Denies rapid heart rate, Denies pedal edema, Denies edema, Denies leg edema, Denies lightheadedness, Denies palpitations, Denies dyspnea, Denies dyspnea on exertion and Denies orthopnea Resp Denies cough, Denies dyspnea and Denies dyspnea on exertion GI Denies hematochezia and Denies change in stool character Musc Denies abnormal gait, Denies muscle cramps, Denies muscle weakness, Denies numbness, Denies radiating pain into limb and Denies tingling Neuro Denies abnormal gait, Denies dizziness, Denies syncope, Denies numbness, Denies tingling and Denies weakness Endo Denies palpitations Physical Exam Vital Signs: Last Vital Signs Pulse 78 04/03/24 12:25 BP 118/62 04/03/24 12:25 BMI result Body Mass Index 25.8 Const General: comfortable and no acute distress Orientation/consciousness: patient oriented x3 HEENT Other: Unremarkable Head: Yes normal to inspection Neck Neck: Yes normal visual inspection Chest Chest palpation & inspection: normal inspection of the chest Resp Auscultation: clear to auscultation bilaterally Cardio Palpation: normal PMI Heart sounds: S1 normal heart sound present, S2 normal heart sound present, no gallops, no murmurs and no rubs GI Palpation (GI): Soft to palpation Back/Spine/Pelvis Other: unremarkable Skin General skin exam: no rashes or lesions noted Neuro General: patient oriented x3 Extrem General: Yes normal to inspection Psych Mental Status: mental status grossly normal Assessment & Plan Assessment & Plan (1) S/P mitral valve repair: Code(s): Z98.890 - Other specified postprocedural states Category: Surgical Plan: Status post mitral valve repair with annuloplasty ring, 10/2023. In fact endocarditis prophylaxis per protocol. He can take low-dose aspirin. In the recent echocardiogram, normal valvular function. (2) Cardiomyopathy: Code(s): I42.9 - Cardiomyopathy, unspecified Category: Medical Plan: Postop echocardiogram with reduced LVEF of 35-40%. Rechecked and now, LVEF is 45-50%. Clinically, he has got no symptoms. (3) Atherosclerotic cardiovascular disease: Code(s): I25.10 - Atherosclerotic heart disease of [place] coronary artery without angina pectoris Category: Medical Plan: Cardiac catheterization shows mid circumflex 50% stenosis with normal IFR, but otherwise normal coronaries. On statins. Check lipids. Orders: Orders Lipid Panel Today E78.5 - Hyperlipidemia, unspecified, I25.10 - Atherosclerotic heart disease of [place] coronary artery without angina pectoris Liver Panel Today I25.10 - Atherosclerotic heart disease of [place] coronary artery without angina pectoris Coding Level of Care Code Est Pt Level 4 (74173) Diagnoses S/P mitral valve repair Z98.890 Cardiomyopathy I42.9 Atherosclerotic cardiovascular disease I25.10
--- OUTSIDE RECORDS SUMMARY | 2024-04-03 14:06 | XMS_ITS | Patient Health Record ---
Author Organization [facility] Address [address] [place] [address] Care Team Providers Care Scientific Research Associate Name Role Phone Jem Moctezuma MD Primary Care Provider Clive Hill Unavailable [phone] ALLERGIES No Known Allergies REASON FOR REFERRAL [...] history of colon cancer (Z80.0) Active confirmed 772267040 Problem Encounter for screening for malignant neoplasm of colon (Z12.11) Active confirmed 373335575 Problem Pre-procedural examination (Z01.818) Active confirmed 872159901279796 Problem Diverticulosis of colon (K57.30) Active confirmed Diverticulosi s of colon (306968487) PLAN OF TREATMENT Pending Test Test Name Order Date Pathology 11/18/2020 Future Test Test Name Order Date COLONOSCOPY 09/30/2020 Insurance Providers Payer Name Payer Address Payer Phone Subscriber Number Group Number Insured Name Patient Relationship to Insured Coverage Start Date Coverage End Date [facility] [address] [facility] [phone] [id number] SLY ANNE Self - patient is the insured MEDICAL (GENERAL) HISTORY Medical History History ICD Code Neg screening colonoscopy in 02/2010 Denies AR,DM,CVA,Lung disease,renal dise ase Surgical History Surgery Date(Month/Year) Left thumb
== END 2024-04-03 12:52 | disposition home or self-care (01) ==
PROVIDERS: PCP Internal Medicine; Visit Provider Internal Medicine
DX: Z98.890 Other specified postprocedural states (principal); I42.9 Cardiomyopathy, unspecified; I25.10 Atherosclerotic heart disease of native coronary artery without angina pectoris
CPT/HCPCS: 99214

== ENCOUNTER → 2024-04-03 12:10 | Outpatient (BNVA) | payer BC, SELFPAY | PROVIDERS: PCP Internal Medicine; Visit Provider Internal Medicine ==

== ENCOUNTER 2024-08-06 10:14 | Outpatient (REF) | payer BC, SELFPAY ==
[2024-08-06 10:16] LABS: MANUAL DIFF FLAG NO
[2024-08-06 10:27] LABS: Basophils Absolute Auto 0.1 X10*3/uL (0.0-0.2); Basophils Percent Auto 0.6 % (0-2); Eosinophils Absolute Auto 0.3 X10*3/uL (0.0-0.4); Eosinophils Percent Auto 3.7 % (0-4); Hematocrit 45.2 % (42.0-52.0); Hemoglobin 14.9 g/dl (14.0-18.0); Imm Gran Abs Auto 0.03 X10*3/uL (0.00-0.03); Imm Gran Pct Auto 0.4 % (0.0-0.4); Lymphocytes Percent Auto 25.2 % (20-40); Mean Corpuscular Hemoglobin 28.8 pg (27.0-33.0); Mean Corpuscular Volume 87.4 fL (80.0-98.0); Mean Platelet Volume 9.1 fL (9.4-12.4); Monocytes Percent Auto 12.5 % (2-11); Neutrophils Absolute Auto 4.5 x10*3/uL (2.0-8.3); Neutrophils Percent Auto 57.6 % (45-73); Platelet Count 216 X10*3/uL (160-400); Red Blood Count 5.17 X10*6/uL (4.60-5.80); Red Cell Distribution Width 13.7 % (11.0-16.0); White Blood Count 7.7 X10*3/uL (4.8-10.8)
[2024-08-06 10:28] LABS: Appearance Urine Clear; Color Urine Yellow; Glucose Urine UA Negative (Negative); Leukocyte Esterase Urine Negative (Negative); Nitrite Urine Negative (Negative); PH 6.5 (5.0-9.0); Urine Blood Negative (Negative); Urine Ketones Negative (Negative); Urine Protein Negative (Neg-Trace)
[2024-08-06 10:32] LABS: Bacteria Urine None Seen (None Seen); Hyaline Casts Urine 0-2 /LPF (0-2); RBC Urine 0-2 /HPF (0-2); Squamous Epithelial Cell Urine 0-2 /HPF (0-2); WBC Urine 0-5 /HPF (0-5)
[2024-08-06 10:49] LABS: Estimated Average Glucose 117 mg/dL; Hemoglobin A1C 148.9363 umol/L; Hemoglobin A1c % 5.7 % (<6.0)
[2024-08-06 10:50] LABS: Alanine Aminotransferase 20 U/L (0-40); Albumin Level 4.4 g/dL (3.5-5.0); Alkaline Phosphatase 53 U/L (39-117); Anion Gap 12 (12-20); Aspartate Amino Transferase 26 U/L (5-37); Bilirubin Total 0.7 mg/dL (0.0-1.0); Blood Urea Nitrogen 20 mg/dL (9-16); Carbon Dioxide 27 mmol/L (22-29); Chloride 108 mmol/L (96-108); Cholesterol 178 mg/dL (<200); Estimated Glomerular Filt Rate > 60; Glucose Fasting 101 mg/dL (60-99); HDL Cholesterol 54 mg/dL (>40); LDL Cholesterol Calculated 115 mg/dL (<100); Potassium 4.6 mmol/L (3.3-5.1); Sodium 142 mmol/L (135-145); Total Protein 6.8 g/dL (6.5-8.0); Triglycerides 48 mg/dL (<150)
--- OUTSIDE RECORDS SUMMARY | 2024-08-06 10:58 | XMS_ITS ---
Author Organization Jem Moctezuma MD Address [address] [place] [phone] Care Team Providers Care Board Writer Name Role Phone Jem Moctezuma Primary Care Provider [phone] REASON FOR VISIT Flu vac Medications Medication SIG (Take, Route, Frequency, Duration) Notes Start Date End Date Status Triamcinolone Acetonide 0.5 % 1 application to affected area Externally Twice a day for 30 days 03/20/2012 Not-Taking amLODIPine Besylate 2.5 MG 1 tablet Orally Once a day Active Metoprolol Succinate ER 50 MG TAKE 1 TABLET BY MOUTH EVERY DAY FOR 30 DAYS Active Immunizations Vaccine Route Administration Date Status Comme nts Influenza High Dose IM Intramuscular 11/20/2023 Administer ed Encounters Encounter Location Date Provider Diagnosis Jem Moctezuma MD [address] [place] [phone] 11/20/2023 Jem Moctezuma Encounter for immunization Z23 Assessments Encounter Date Diagnosis (ICD Code) Assessment Notes Treatment Notes Treatment Clinical Notes Section Notes 11/20/2023 Encounter for immunization (ICD-10 - Z23) Plan Of Treatment Next Appt Details Provider Name:Jem schwartz, 08/12/2024 01:00:00 PM, [address] [facility], [address] [place] [address], [phone], Progress Notes * Clay MCALLISTERDOB:1955 ( 68 yo M)Acc No.[id number]:11/20/2023 Progress Note Patient:Clay WHIPPLE Provider:?Jem Moctezuma MD :1955???Age:68 Y???Sex:Male Torey e:11/20/2023 Address:[address] [place] [address] Subjective: * Chief Complaints: * ???1. Flu vac. * Medical History:? * Medications:?Taking amLODIPi ne Besylate 2.5 MG Tablet 1 tablet Orally Once a day , Taking Metoprolol Succinate ER 50 MG Tablet Extended Release 24 Hour TAKE 1 TABLET BY MOUTH EVERY DAY FOR 30 DAYS , Not-Taking/PRN Triamcinolone Acetonide 0.5 % Cream 1 application to affected area Externally Twice a day Objective: * Vitals:? Assessment: * Assessment: 1.?Encounter for immunizatio n - Z23 (Primary)??? Plan: * Treatment: * Immunizations:? Influenza High Dose : 0.5 mL (Dose No:1) (Route: Intramuscular) given by Marie Harris , Office Staff on Left Deltoid * Procedure Codes:?21532 FLU V ACC PRSV FREE INC ANTIG, 15115 IMMUNIZATION ADMIN * Preventive Medicine:? ??Immunizations:?Influenza?Have you had a flu shot since the most recent November 11??Yes.? * * The named appointment provid er may or may not be the originator of this progress note, and it is not deemed complete until electronically signed by the appointment provider. Sign off status: Pending * Provider:?Jem Moctezuma MD Date:?0 11/20/2023 Generated for Kiet dent/Deya/eTransmitting on:?08/06/2024 10:58 AM EDT
[2024-08-06 10:59] LABS: PSA,Total (Free>4and<10) 2.07 ng/mL (0.00-4.00)
[2024-08-06 11:31] LABS: Microalbum/Creatinine Ratio Ur 6.1 ug/mg cr (<30)
== END 2024-08-06 10:15 | disposition home or self-care (01) ==
LOC: HO.LNP 10:14
PROVIDERS: Visit Provider Internal Medicine
DX: I10 Essential (primary) hypertension (principal); Z12.5 Encounter for screening for malignant neoplasm of prostate; R73.03 Prediabetes; D70.9 Neutropenia, unspecified
CPT/HCPCS: 80053; 80061; 81001; 82043; 82570; 83036; 84153; 85025

== ENCOUNTER 2024-10-01 14:33 | Outpatient (AMB) | payer BC, SELFPAY ==
--- OUTSIDE RECORDS SUMMARY | 2024-02-02 10:30 | XMS_ITS ---
Author Organization Jem Moctezuma MD Address [address] [place] [phone] Care Team Providers Care Children Teacher Name Role Phone Jem Moctezuma Primary Care Provider Allergies No Known Allergies REASON FOR VISIT 6 MO F/U, mitral valve repair October Medications Medication SIG (Take, Route, Frequency, Duration) Notes Start Date End Date Status Metoprolol Succinate ER 50 MG TAKE 1 TABLET BY MOUTH EVERY DAY FOR 30 DAYS Active amLODIPine Besylate 2.5 MG 1 tablet Orally Once a day Active Triamcinolone Acetonide 0.5 % 1 application to affected area Externally Twice a day for 30 days 03/20/2012 Not-Taking Vital Signs Blood pressure systolic 130 mm Hg 02/02/20 24 Blood pressure diastolic 78 mm Hg 024 Height 67 in 02/02/2024 Weight 178 lbs 02/02/2024 BMI 27.88 kg/m2 02/02/2024 Encounters Encounter Location Date Provider Diagnosis Jem Moctezuma MD [address] [place] [phone] 02/02/2024 Jem Moctezuma History of mitral valve repair Z98.890 and Moderate mitral regurgitation I34.0 Assessments Encounter Date Diagnosis (ICD Code) Assessment Notes Treatment Notes Treatment Clinical Notes Section Notes 02/02/2024 History of mitral valve repair (ICD-10 - Z98.890) need discharge summary from [facility]. DOING GREAT AFTER SURGERY.needs ab for procedures/ DISCHARGE SUMMARY REQUESTED FROM [facility], Total time spent on the date of the encounter is 35 minutes including both face to face time spent and time spent reviewing documentation, and counseling the patient. 02/02/2024 Moderate mitral regurgitation (ICD-10 - I34.0) Plan Of Treatment Treatment Notes Assessment Notes History of mitral valve repair need disc harge summary from [facility]. DOING GREAT AFTER SURGERY.needs ab for procedures/ DISCHARGE SUMMARY REQUESTED FROM [facility], Total time spent on the date of the encounter is 35 minutes including both face to face time spent and time spent reviewing documentation, and counseling the patient. Next Appt Details Provider Name:Jem Murillo ier, 02/10/2025 03:00:00 PM, [address] [place] [address], [address], [phone], Provider Name:Jem Murillo ier, 08/07/2025 07:30:00 AM, [address] [place] [address], [address], [phone], Provider Name:Jem Kendell Chidi ier, 08/14/2025 01:00:00 PM, [address] [place] [address], [address], [phone], Progress Notes * Clay MCALLISTERDOB:1955 ( 68 yo M)Acc No.[id number]:02/02/2024 Progress Notes Patient: Clay Contreras Provider: Jenni Moctezuma MD :1955 A ge:68 Y S ex:Male Date:02/02/2024 Address:[address] [place], [place] [phone] Subjective: * Chief Complaints: * 6 MO F/U, mitral valve repair October * HPI: S ymptom(s): patient is a 68 yo male here for follow up of heart surgery. * ROS: G eneral/Constitutional: Denies C hills. D enies F atigue. D enies F ever. D enies H eadache. E NT: Patient denies d ecreased sense of smell , any loss of taste , sore throat. D enies S ore throat. R espiratory: Denies C ough. D enies S hortness of breath at rest. D enies S hortness of breath with exertion. G astrointestinal: Denies D iarrhea. D enies N ausea. M usculoskeletal: Patient denies m uscle aches. P eripheral Vascular: Patient denies r ed and blue toes. * Medical History: * Surgical History: * Hospitalization/Major Diagno stic Procedure: * Medications: T akingamLODIPine Besylate 2.5 MG Tablet 1 tablet Orally Once a dayMetoprolol Succinate ER 50 MG Tablet Extended Release 24 Hour TAKE 1 TABLET BY MOUTH EVERY DAY FOR 30 DAYS Taking amLODIPine Besylate 2.5 MG Tablet 1 tablet Orally Once a dayTaking Metoprolol Succinate ER 50 MG Tablet Extended Release 24 Hour TAKE 1 TABLET BY MOUTH EVERY DAY FOR 30 DAYS Not-Taking/PRNTriamcinolone Acetonide 0.5 % Cream 1 application to affected area Externally Twice a dayMedication List reviewed and reconciled with the patientNot-Taking/PRN Triamcinolone Acetonide 0.5 % Cream 1 application to affected area Externally Twice a dayMedication List reviewed and reconciled with the patient * Allergies: N .K.D.A.yes[Allergies Verified] Objective: * Vitals: H t: 67, Wt:178, BMI:27.88, BP:130/78. * Examination: G eneral Examination: GENERAL APPEARANCE: a lert, well hydrated, in no distress.? SKIN: g ood turgor. HEART: n o murmurs, rubs, gallops , regular rate and rhythm. LUNGS: n o wheezes, rales, rhonchi , good air movement , clear to auscultation bilaterally. Assessment: * Assessment: 1. M oderate mitral regurgitation - I34.0 (Primary) 2 . H istory of mitral valve repair - Z98.890 Plan: * Treatment: * Procedure Codes: * * Sign off status: Completed true * Provider: Jenni Moctezuma MD Date: 04/03/2023 Generated for Kiet dent/Deya/eTransmitting on: 0 10/01/2024 03:46 PM EDT History and Physical Notes * HPI (History of Present Illness) Category Sub-Category Detail Notes Category Not es Symptom(s) patient is a 68 yo male here for follow up of heart surgery. Examination Category Sub-Category Detail Notes Category Not es General Examination GENERAL APPEARANCE: alert, w ell hydrated, in no distress HEART: no murmurs, rubs, ga llops , regular rate and rhythm LUNGS: no wheezes, rales, r honchi , good air movement , clear to auscultation bilaterally SKIN: good turgor
--- NOTE | 2024-10-01 14:58 | A.OFFVIS_ITS ---
Vital Signs 10/01/24 15:01 Height 5 ft 8 in Weight 174 lb 2.643 oz BMI 26.5 BP 120/62 Blood Pressure Location Lt brachial Position Sitting Pulse 73 Pulse Source Monitor Intake Visit Reasons: 6m follow up Allergies No Known Allergies Allergy (Mild, Verified 10/07/23 05:40) NOT APPLICABLE Medication List - Last Reconciled 10/01/24 by Rony Hopkins MD aspirin 81 mg PO DAILY atorvastatin 40 mg PO QPM metoprolol succinate ER 50 mg PO DAILY HPI Comments Details: Clay returns for follow-up. In the past, he was seen regarding severe mitral regurgitation. Then referred to Cardiac surgery and he underwent mitral valve repair. Overall, he is doing very well. No cardiac symptoms whatsoever. [facility] Medical History (Updated 12/20/23 @ 10:39 by Rony Hopkins MD) Decreased cardiac ejection fraction Essential hypertension Heart murmur Surgical History S/P mitral valve repair H/O colonoscopy Hx of hand surgery Family History Father No problems noted. Mother No problems noted. Social History Alcohol intake: former Year quit: 1999 Patient Tobacco Use Status: Former Tobacco user Tobacco use type: Cigarette Review of Systems Const Denies weakness ENT Denies dizziness Card Denies chest pain, Denies chest pain with activity, Denies syncope, Denies rapid heart rate, Denies pedal edema, Denies edema, Denies leg edema, Denies lightheadedness, Denies palpitations, Denies dyspnea, Denies dyspnea on exertion and Denies orthopnea Resp Denies cough, Denies dyspnea and Denies dyspnea on exertion GI Denies hematochezia and Denies change in stool character Musc Denies abnormal gait, Denies muscle cramps, Denies muscle weakness, Denies numbness, Denies radiating pain into limb and Denies tingling Neuro Denies abnormal gait, Denies dizziness, Denies syncope, Denies numbness, Denies tingling and Denies weakness Endo Denies palpitations Physical Exam Vital Signs: Last Vital Signs Pulse 73 10/01/24 15:01 BP 120/62 10/01/24 15:01 BMI result Body Mass Index 26.5 Const General: comfortable and no acute distress Orientation/consciousness: patient oriented x3 HEENT Other: Unremarkable Head: Yes normal to inspection Neck Neck: Yes normal visual inspection Chest Chest palpation & inspection: normal inspection of the chest Resp Auscultation: clear to auscultation bilaterally Cardio Palpation: normal PMI Heart sounds: S1 normal heart sound present, S2 normal heart sound present, no gallops, no murmurs and no rubs GI Palpation (GI): Soft to palpation Back/Spine/Pelvis Other: unremarkable Skin General skin exam: no rashes or lesions noted Neuro General: patient oriented x3 Extrem General: Yes normal to inspection Psych Mental Status: mental status grossly normal Office Procedures EKG Details: EKG with underlying sinus rhythm at 73/Min; leftward axis; no significant ST-T changes; [place]. [address]-[id number], Complete Assessment & Plan Assessment & Plan (1) S/P mitral valve repair: Code(s): Z98.890 - Other specified postprocedural states Category: Surgical Plan: Status post mitral valve repair with annuloplasty ring, 10/2023. In fact endocarditis prophylaxis per protocol. He can take low-dose aspirin. In the echocardiogram, normal valvular function. (2) Cardiomyopathy: Code(s): I42.9 - Cardiomyopathy, unspecified Category: Medical Plan: Postop echocardiogram with reduced LVEF of 35-40%. Rechecked - LVEF is 45-50%. Clinically, he has got no symptoms. (3) Atherosclerotic cardiovascular disease: Code(s): I25.10 - Atherosclerotic heart disease of [place] coronary artery without angina pectoris Category: Medical Plan: Cardiac catheterization shows mid circumflex 50% stenosis with normal IFR, but otherwise normal coronaries. Statins listed in his meds but he is not taking them. Advised him to start taking it. Follow-up lipids can be done through his own PCP. Orders: Orders CA echo transthoracic complete 1 Year Z98.890 - Other specified postprocedural states Medications: Refilled atorvastatin 40 mg PO QPM 90 tabs 3RF Coding Level of Care Code Est Pt Level 4 (41413) Complex EM visit Add On G2211 Diagnoses S/P mitral valve repair Z98.890 Cardiomyopathy I42.9 Atherosclerotic cardiovascular disease I25.10 CPT Codes EKG - CPT: 90399-[id number], Complete ([id number])
[2024-10-01 15:01] VITALS: BP 120/62; PULSE 73; BMI 26.5
--- OUTSIDE RECORDS SUMMARY | 2024-10-01 15:47 | XMS_ITS | Patient Health Record ---
Author Organization [facility] Address [address] [place] [address] Care Team Providers Care Computer Video Game Designer Name Role Phone Jem Moctezuma MD Primary Care Provider Clive Hill Unavailable [phone] Allergies No Known Allergies Reason For Referral No Information Immunizations Vaccine Route Administration Date Status Comme nts Influenza Unknown 12/12/2019 Administered Social History Tobacco Use: Social History Observation Description Date Details (start date - stop date) Former Smoker NA - NA Tobacco Use/Smoking Question Answer Notes Patient is a former smoker How long has it been since you last smoked? > 10 years Alcohol Screen Question Answer Notes Did you have a drink containing alcohol in the p ast year? No Points 0 Interpretation Negative Section Notes: Nonsmoker > 10 yrs ago; no a lcohol Problems Problem Type SNOMED Code ICD Code Onset Dates Problem Status W/U Status Risk Notes Problem 186691821 Encounter for screening for malignant neoplasm of colon (Z12.11) Active confirmed Problem 160248309 Family history o f colon cancer (Z80.0) Active confirmed Problem [id number] Pre-procedural examination (Z01.818) Active confirmed Problem Diverticulosis of colon (884042456) Diverticulosis of colon (K57.30) Active confirmed Plan Of Treatment Pending Test Test Name Order Date Pathology 11/18/2020 Future Test Test Name Order Date COLONOSCOPY 09/30/2020 Insurance Providers Payer Name Payer Address Payer Phone Subscriber Number Group Number Insured Name Patient Relationship to Insured Coverage Start Date Coverage End Date [facility] [address] [facility] [phone] [id number] SLY ANNE Self - patient is the insured Medical (General) History Medical History History ICD Code Neg screening colonoscopy in 02/2010 Denies MS,DM,CVA,Lung disease,renal dise ase Surgical History Surgery Date(Month/Year) Left thumb
== END 2024-10-01 15:17 | disposition home or self-care (01) ==
LOC: HO.HCS 14:34
PROVIDERS: PCP Internal Medicine; Visit Provider Internal Medicine
DX: Z98.890 Other specified postprocedural states (principal); I42.9 Cardiomyopathy, unspecified; I25.10 Atherosclerotic heart disease of native coronary artery without angina pectoris
CPT/HCPCS: 93010; 99214

== ENCOUNTER → 2024-10-01 14:33 | Outpatient (BNVA) | payer BC, SELFPAY | PROVIDERS: PCP Internal Medicine; Visit Provider Internal Medicine | DX: I25.10 Atherosclerotic heart disease of native coronary artery without angina pectoris (principal) | CPT/HCPCS: 93005 ==